=== PATIENT | female | born 1995 | race Caucasian/White ===

== ENCOUNTER 2018-04-28 04:02 | Inpatient (IN) | payer OTHER ==
[2018-04-28] MEDS ORDERED: CARBOPROST TROME 250 MCG/ML IM PRN (04:41)
[2018-04-28] MEDS ORDERED: Ringers Lactate 1,000 ML IV PRN (04:41)
[2018-04-28] MEDS ORDERED: PROMETHAZINE 25 MG/ML VIAL IM PRN (04:41)
[2018-04-28] MEDS ORDERED: MEPERIDINE HCL 25 MG/0.5 ML IV PRN (04:41)
[2018-04-28] MEDS ORDERED: METHYLERGONOVINE 0.2MG/ML AMP IM PRN (04:41)
[2018-04-28] MEDS ORDERED: BUTORPHANOL 1 MG/ML INJ IV PRN (04:41)
[2018-04-28 04:47] VITALS: BMI 31.3
[2018-04-28 04:53] LABS: RPR Titer ND
[2018-04-28 04:59] LABS: Urine Appearance CLOUDY; Urine Bilirubin NEGATIVE (NEG); Urine Blood 1+ (NEG); Urine Color YELLOW; Urine Glucose NEGATIVE (NEG); Urine Protein NEGATIVE (NEG); Urine pH 6.5 (5.0-7.0)
[2018-04-28] MEDS ORDERED: OXYTOCIN/LR 20 UNITS/1,000 ML BAG IV SCH (05:00)
[2018-04-28] MEDS ORDERED: Ringers Lactate 1,000 ML IV SCH (05:00)
[2018-04-28 05:01] LABS: Absolute Lymphocytes (CBC) 1.5 K/uL (0.7-4.9); Absolute Monocytes 0.6 K/uL (0.1-1.3); Absolute Neutrophil 3.8 K/uL (1.8-8.0); Basophils % 0.2 % (0-1.3); Eosinophils % 0.4 % (0-4.4); Hematocrit 31.7 % (36.0-45.0); Lymphocytes % 25.9 % (15.3-44.8); MCH 32.6 pg (27.0-35.0); MCV 95.4 fL (80-100); Monocytes % 9.4 % (3.3-12.3); RBC Red Blood Cell Count 3.32 M/uL (3.86-4.86)
[2018-04-28 05:41] LABS: Urine Microscopic Reflex ORDER UMIC
[2018-04-28 05:44] LABS: Urine Bacteria >50 /HPF (<20); Urine Culture Reflex Order REFLEXED; Urine RBC <5 /HPF (NONE SEEN)
[2018-04-28] MEDS ORDERED: LIDOCAINE 1% 20 ML MDV ONE (11:12)
[2018-04-28] MEDS ORDERED: DIPHENHYDRAMINE 25 MG TAB/CAP PO PRN (11:35)
[2018-04-28] MEDS ORDERED: DOCUSATE NA/SENNA CONC 1 TAB PO PRN (11:35)
[2018-04-28] MEDS ORDERED: Oxycodone HCl/Acetaminophen 1 TAB TAB PO PRN ×2 (11:35)
[2018-04-28] MEDS ORDERED: IBUPROFEN 200 MG TAB PO PRN (11:35)
[2018-04-28] MEDS ORDERED: ACETAMINOPHEN 500 MG TAB PO PRN (11:35)
[2018-04-28] MEDS ORDERED: BISACODYL 10 MG RECTAL SUPP RECT PRN (11:35)
--- NOTE | 2018-04-28 11:52 | OP ---
Surgeon: Melvin Pual MD Indications And Procedure: A 22-year-old, 2, para 1, 39 weeks 2 days, 2 cm on admission, 50% . Cervix slightly posterior. Kellie regularly. Rh positive, immune to Rubella. Negative beta strep screen. Rupture of membranes, clear fluid. During the labor, received Stadol IV 1 mg x2, oth erwise used Lamaze breathing techniques. Second stage of 15 to 20 minutes. Spontaneous vaginal deli very of a 6-pound 9 ounce male , Apgars 9 and 10. Small first degree laceration to the right a nd under the clitoris, a 2-0 chromic running locked stitch after local infiltration. Cao delivery of the placenta, which was inspected and noted to be intact and normal. A 300 cc blood loss. The p atient tolerated all procedures well. Final Diagnosis: Term intrauterine at 39 weeks 2 days, vaginal delivery. ROSALINDA/GINA Voice ID: [id number] Report ID: [id number]
[2018-04-28] MEDS ORDERED: OXYTOCIN/LR 20 UNIT/1,000 ML BAG IV SCH (12:00)
--- NOTE | 2018-04-28 13:28 | PREOPHP ---
Date of Admission: 04/28/2018 A 22-year-old, 2, para 1, at 39 weeks and 1 possibly 2 days, 2 cm, 50% effaced, vertex, well applied, -1 station. Cervix slightly posterior. Kellie regularly. FHTs normal, reactive. Vit al signs stable. Rh positive, immune to Rubella. Negative beta strep screen. Rupture of membranes, clear fluid. Labor talk given. The patient anticipates natural childbirth. Of course, she has the option to her mind if she chooses. Anticipate delivery sometime later today. Full labor talk given . ROSALINDA/GINA Voice ID: [id number]
[2018-04-29] MEDS ORDERED: Ringers Lactate 1,000 ML IV ONE (08:50)
[2018-04-29 11:14] VITALS: BP 116/69; TEMP 96.8
[2018-04-29 21:11] LABS: RPR (Rapid Plasma Reagin) NON-REACT (NON-REACT)
--- NOTE | 2018-04-30 01:09 | DS ---
Hospital Course: A 22-year-old, 2, para 1, 39 weeks 2 days. Delivered a 6 pounds 9 ounce ma le infant, Apgars 9 and 10. Small first-degree laceration just under the clitoris and to the patient 's right sutured with running lock stitch 2-0 chromic, approximately 5 or 6 stitches. Local infiltra tion of anesthetic. Cao delivery of the placenta. Estimated blood loss 300 cc. Beta strep negat bernabe. Rh positive, immune to Rubella. The patient has had her Tdap shot during the . She i s afebrile, ambulating, voiding. Lochia is normal. After the baby is discharged, patient will leave this afternoon to report back to my office in 6 weeks. To report any fever of 100 degrees or greate r, severe pain, heavy bleeding, or any other type of abnormalities. Dismissed with tramadol for anal gesia, although she may elect to take Motrin instead. Final Diagnoses: Term intrauterine 39 weeks 2 days, vaginal delivery. ROSALINDA/GINA Voice ID: [id number] Report ID: [id number]
[2018-05-01 19:53] LABS: HBsAG Nonreactive (Nonreactive)
== END 2018-04-29 13:45 | disposition home or self-care (01) | DRG 775 ==
LOC: 2ND-WC 04:02
PROVIDERS: ADMIT Specialist; ATTEND Specialist
PROC: 10907ZC Drainage of Amniotic Fluid, Therapeutic from Products of Conception, Via Natural or Artificial Opening (ICD-10-PCS; principal; 2018-04-28)
PROC: 10E0XZZ Delivery of Products of Conception, External Approach (ICD-10-PCS; 2018-04-28)
PROC: 0HQ9XZZ Repair Perineum Skin, External Approach (ICD-10-PCS; 2018-04-28)
DX: O70.0 First degree perineal laceration during delivery (principal); Z3A.39 39 weeks gestation of pregnancy; Z37.0 Single live birth
CPT/HCPCS: 36415; 81003; 81015; 85025; 86592; 86850; 86900; 86901; 87086; 87088; 87340; J0595; J2175; J2210; J2550; J2590

== ENCOUNTER 2019-09-28 01:07 | Inpatient (IN) | payer OTHER ==
[2019-09-28] MEDS ORDERED: BUTORPHANOL 1 MG/ML INJ IV PRN (01:12)
[2019-09-28] MEDS ORDERED: PROMETHAZINE 25 MG/ML VIAL IM PRN (01:12)
[2019-09-28] MEDS ORDERED: Ringers Lactate 1,000 ML IV PRN (01:12)
[2019-09-28] MEDS ORDERED: METHYLERGONOVINE 0.2MG/ML AMP IM PRN (01:12)
[2019-09-28] MEDS ORDERED: CARBOPROST TROME 250 MCG/ML IM PRN (01:12)
[2019-09-28] MEDS ORDERED: miSOPROStoL 100 MCG TAB VAG PRN (01:15)
[2019-09-28 01:38] LABS: Urine Appearance CLEAR; Urine Bilirubin NEGATIVE (NEG); Urine Blood NEGATIVE (NEG); Urine Color YELLOW; Urine Glucose NEGATIVE (NEG); Urine Protein NEGATIVE (NEG)
[2019-09-28] MEDS ORDERED: Ringers Lactate 1,000 ML IV SCH (02:00)
[2019-09-28] MEDS ORDERED: OXYTOCIN/LR 20 UNIT/1,000 ML BAG IV SCH ×2 (02:00→06:00)
[2019-09-28 02:26] LABS: Urine Microscopic Reflex NO UMIC
[2019-09-28 02:32] LABS: Absolute Lymphocytes (CBC) 1.3 K/uL (0.7-4.9); Basophils % 0.2 % (0-1.3); Hematocrit 31.9 % (36.0-45.0); Lymphocytes % 23.2 % (15.3-44.8); MPV 8.7 fL (7.6-11.3); RBC Red Blood Cell Count 3.32 M/uL (3.86-4.86)
--- NOTE | 2019-09-28 03:51 | PREOPHP ---
Date of Admission: 09/28/2019 A 23-year-old 3, para 2, 38 weeks 2 days, seen in consultation with Dr. Larsen in [facility] [place], [place], high-risk physician. The patient has a history of chronic thrombophlebitis and th romboembolism. Has been on Lovenox b.i.d. during the . Twenty four hours ago, she took her last dose. Dr. Larsen has recommended delivery at this point as the baby is not growing as well as it should and umbilical artery flow is slowing. She is now 3 cm, 50% effaced, somewhat posterior, ba by well applied, richard every 10 minutes or so, but firm. Rupture of membranes, clear fluid. W e will start Pitocin augmentation as soon as possible. The plan is to deliver the patient and then s tart Lovenox again within 18-24 hours after the delivery. The patient will go natural as she has wit h her other 2 deliveries. Obviously, epidural anesthesia would not be a good idea. ROSALINDA/GINA Voice ID: [id number]
[2019-09-28] MEDS ORDERED: Ringers Lactate 1,000 ML IV ONE (04:08)
[2019-09-28] MEDS ORDERED: OXYTOCIN 10 UNIT/ML ML IV ONE (04:08)
[2019-09-28 04:38] VITALS: BMI 29.7
[2019-09-28] MEDS ORDERED: DOCUSATE NA/SENNA CONC 1 TAB PO PRN (05:43)
[2019-09-28] MEDS ORDERED: Oxycodone HCl/Acetaminophen 1 TAB TAB PO PRN ×2 (05:43)
[2019-09-28] MEDS ORDERED: BISACODYL 10 MG RECTAL SUPP RECT PRN (05:43)
[2019-09-28] MEDS ORDERED: IBUPROFEN 200 MG TAB PO PRN (05:43)
[2019-09-28] MEDS ORDERED: DIPHENHYDRAMINE 25 MG TAB/CAP PO PRN (05:43)
[2019-09-28] MEDS ORDERED: ACETAMINOPHEN 500 MG TAB PO PRN (05:43)
--- NOTE | 2019-09-28 07:15 | OP ---
Surgeon: Melvin Paul MD A 23-year-old, 3, para 2, 38 weeks 2 days. History of chronic thrombophlebitis and thromboem bolism in the past. Has been on Lovenox b.i.d. during the entire and seen in consultation with Dr. Jules at [facility] in [place]. Yesterday Dr. Jules suggested patient be delivered as soon as possible as the fetus was no longer growing and the umbilical artery flow was sl owing. 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 The patient was already 3 cm, clear fluid. She went into an active labor pattern. Used La maze breathing techniques to best advantage. After reaching 6-7 cm, went rapidly to complete second stage of 5 minutes approximately, spontaneous vaginal delivery of an estimated 6 pounds female, s 9 and 9. No episiotomy. No lacerations. Schultze delivery of the placenta, which was inspected a nd noted to be intact and normal. Mild uterine hypotonus, 0.2 mg of Methergine and IV drip Pitocin. Estimated blood loss 400 mL. Patient tolerated all procedures well. She is Rh positive, immune to Rubella. Negative beta strep screen. She had stopped her Lovenox 24 hours or more prior to delivery as per the instructions and will begin again back on her Lovenox within 24 hours of delivery. Doing well at this point. ROSALINDA/GINA Voice ID: [id number] Report ID: [id number]
[2019-09-28] MEDS ORDERED: INFLUENZA VACCINE (for 3y+) 0.5 ML DOSE IMVAC ONE (08:00)
[2019-09-28 21:54] LABS: RPR (Rapid Plasma Reagin) NON-REACT (NON-REACT)
--- NOTE | 2019-09-29 03:04 | DS ---
History: A 23-year-old 3, para 2, 38 weeks 2 days gestation, seen in consultation with Dr. Anni robert, [facility] during the for history of chronic thrombophlebitis and previous thromboembolism. Has been on Lovenox twice a day during the . After being seen in the office for consultation, Dr. Larsen recommended immediate delivery. The baby was not growing ad equately and the umbilical blood flow was decreasing, she was 3 cm when she came into the hospital, h as stopped her Lovenox approximately 24 hours prior to admission. Membranes were ruptured and patien t went to an active labor pattern without Pitocin. Delivered quickly a 5-pound 4-ounce female. Apga rs 9 and 9. No episiotomy. No laceration. Schultze delivery of the placenta was inspected and note d be intact and normal. Mild uterine hypotonus, 0.2 mg of Methergine IM, IV drip Pitocin. Estimated blood loss 400 mL. Rh positive, immune to Rubella. Negative beta strep screen. ; afebri le, ambulating and voiding. Lochia is normal. The patient knows to restart her Lovenox 18-24 hours. After the delivery she has her own medication, is highly reliable, and will do so. The patient moises l stay until tomorrow when she will be assessed and if any problems, Dr. Hollingsworth is on-call. Right now, she is doing quite well. Does not require any analgesics on dismissal. She will call my offic e today and make an appointment for routine followup. Final Diagnoses: Intrauterine gestation 38 weeks 2 days. History of chronic thrombophlebitis and pr evious thromboembolism, on Lovenox during the , Lovenox stopped 24 hours prior to delivery, will be started 24 hours after delivery. Mild uterine hypotonus. NBC/MODL Voice ID: [id number] Report ID: [id number]
[2019-09-29 07:17] LABS: Absolute Lymphocytes (CBC) 1.5 K/uL (0.7-4.9); Basophils % 0.2 % (0-1.3); Lymphocytes % 24.5 % (15.3-44.8); MPV 7.8 fL (7.6-11.3); RBC Red Blood Cell Count 2.68 M/uL (3.86-4.86)
[2019-09-29] MEDS ORDERED: Tdap (Diph,Pertuss(Acell),Tet Vac) 0.5 ML SYR IMVAC ONE (07:34)
[2019-09-29 07:39] VITALS: BP 109/64; TEMP 98
[2019-09-29] MEDS ORDERED: INFLUENZA VACCINE (for 3y+) 0.5 ML DOSE IMVAC ONE (08:00)
[2019-09-29] MEDS ORDERED: PRENATAL VITAMIN PO SCH (09:00)
--- OUTSIDE RECORDS SUMMARY | 2019-10-02 02:28 | XMS REPORT ---
:1995 [facility] [address] [place] [address] Care Team Providers Name Role Phone BRYCE ALICIA Unavailable Unavailable Problems This patient has no known problems. Allergies, Adverse Reactions, Alerts This patient has no known allergies or adverse reactions. Medications This patient has no known medications. Results Test Description Test Time Test Comments Text Results Atomic Results Result Comments BASIC METABOLIC PANEL 2018-08-18 14:57:00 Test Item Value Reference Range Comments SODIUM (BEAKER) (test 139 meq/L 136-145 vyab=041) POTASSIUM (BEAKER) (test 3.3 meq/L 3.5-5.1 ayku=065) CHLORIDE (BEAKER) (test 107 meq/L 98-107 wpjg=653) CO2 (BEAKER) (test utbk=214) 26 meq/L 22-29 BLOOD UREA NITROGEN (BEAKER) 9 mg/dL 7-21 (test vdkp=368) CREATININE (BEAKER) (test 0.80 mg/dL 0.57-1.25 dmft=652) GLUCOSE RANDOM (BEAKER) 94 mg/dL 70-105 (test jewo=404) CALCIUM (BEAKER) (test 8.8 mg/dL 8.4-10.2 gebg=175) EGFR (BEAKER) (test 89 mL/min/1.73 sq m ESTIMATED GFR IS NOT kcfa=0733) ACCURATE CREATININE CLEARANCE IN PREDICTING GLOMERULAR FILTRATION RATE. ESTIMATED GFR IS NOT APPLICABLE FOR DIALYSIS PATIENTS. [id number] 14:51:00 Test Item Value Reference Range Comments PARTIAL THROMBOPLASTIN TIME (BEAKER) (test 28.1 seconds 22.5-36.0 paag=032) LUPUS ANTICOAGULANT SCREEN WITH REFLEX TO [id number] 13:07:00 Test Item Value Reference Range Comments DRVV SCREEN RATIO (BEAKER) (test 0.97 <1.20 ovoj=8151) DRVV INTERPRETATION (BEAKER) 1:1 mix resulted in (test drmq=9425) correction into normal range and lupus screening tests negative, suggestive of factor deficiency. PROTIME (BEAKER) (test tccw=294) 13.3 seconds 11.7-14.7 INR (BEAKER) (test lkoa=788) 1.2 <=5.9 PARTIAL THROMBOPLASTIN TIME 36.9 seconds 22.5-36.0 (BEAKER) (test avrg=369) PTT-LA (BEAKER) (test 46.9 32.0-41.8 enff=[id number]) [id number] (BEAKER) Trudi Osman MD (test zxni=2933) (electronic signature) FACTOR 5 LEIDEN PCR (THROMBOTIC RISK)2018-08-18 12:58:00 Test Item Value Reference Range Comments FACTOR V LEIDEN (BEAKER) Negative for the R506Q (Factor (test nsua=229) V Leiden) mutation [id number] (BEAKER) Trudi Osman MD (test agok=9425) (electronic signature) This test is a genotyping assay which evaluates the DNA sequence corresponding to Codon 506 of the Factor V Gene. A region of the Factor V Gene is amplified by polymerase chain reaction followed by fluorescent monitoring of a specific pair of hybridized probes. Since genetic variation and other factors can affect the accuracy of direct mutation testing, these results should be interpreted in light ofclinical and familial data.This test was developed and [facility] performance [facility]. It has not been cleared or approved by the U.S. Food and Drug Administration (FDA), since FDA approval is not required for clinical use of the test. Validation was done as required by the Clinical Laboratory Improvement Amendments of 1988.[id number] 12:54:00 Test Item Value Reference Range Comments PARTIAL THROMBOPLASTIN TIME (BEAKER) (test 56.1 seconds 22.5-36.0 luqz=554) BASIC METABOLIC [id number] 12:51:00 Test Item Value Reference Range Comments SODIUM (BEAKER) (test 141 meq/L 136-145 mkhz=072) POTASSIUM (BEAKER) (test 2.9 meq/L 3.5-5.1 wdzk=208) CHLORIDE (BEAKER) (test 107 meq/L 98-107 psqz=253) CO2 (BEAKER) (test 28 meq/L 22-29 lozy=546) BLOOD UREA NITROGEN 9 mg/dL 7-21 (BEAKER) (test aqwo=043) CREATININE (BEAKER) (test 0.85 mg/dL 0.57-1.25 vxrb=045) GLUCOSE RANDOM (BEAKER) 106 mg/dL 70-105 (test vjhj=422) CALCIUM (BEAKER) (test 8.9 mg/dL 8.4-10.2 couk=473) EGFR (BEAKER) (test 83 mL/min/1.73 sq m ESTIMATED GFR IS NOT ilql=7060) ACCURATE CREATININE CLEARANCE IN PREDICTING GLOMERULAR FILTRATION RATE. ESTIMATED GFR IS NOT APPLICABLE FOR DIALYSIS PATIENTS. BETA-2 GLYCOPROTEIN [id number] 10:10:00 Test Item Value Reference Range Comments B2 GLYCOPROTEIN AUTOVERIFICATION Refer to individual COMPONENT (test tsti=3739) B2-Glycoprotein IgG, IgM and IgA results. [id number] 02:03:00 Test Item Value Reference Range Comments PARTIAL THROMBOPLASTIN TIME (BEAKER) (test 65.2 seconds 22.5-36.0 lzti=948) CBC (HEMOGRAM ONLY)2018-08-18 00:40:00 Test Item Value Reference Range Comments WHITE BLOOD CELL COUNT (BEAKER) (test wsdr=746) 8.2 K/ L 3.5-10.5 RED BLOOD CELL COUNT (BEAKER) (test tfeg=907) 3.12 M/ L 3.93-5.22 HEMOGLOBIN (BEAKER) (test bfzq=087) 9.5 GM/DL 11.2-15.7 HEMATOCRIT (BEAKER) (test djni=662) 27.8 % 34.1-44.9 MEAN CORPUSCULAR VOLUME (BEAKER) (test wvio=933) 89.1 fL 79.4-94.8 MEAN CORPUSCULAR HEMOGLOBIN (BEAKER) (test 30.4 pg 25.6-32.2 rdpe=209) MEAN CORPUSCULAR HEMOGLOBIN CONC (BEAKER) (test 34.2 GM/DL 32.2-35.5 ltay=577) RED CELL DISTRIBUTION WIDTH (BEAKER) (test 13.5 % 11.7-14.4 zfxt=968) PLATELET COUNT (BEAKER) (test eawf=126) 109 K/CU MM 150-450 MEAN PLATELET VOLUME (BEAKER) (test wqgc=683) 10.5 fL 9.4-12.3 NUCLEATED RED BLOOD CELLS (BEAKER) (test 0 /100 WBC 0-0 xeog=564) SCREEN, [id number] 16:01:00 Test Item Value Reference Range Comments TEST URINE (BEAKER) (test sgsb=751) Negative HEXAGONAL [id number] 13:46:00 Test Item Value Reference Range Comments HEXAGONAL PHOSPHOLIPID (BEAKER) (test enco=6429) Negative BASIC METABOLIC [id number] 09:36:00 Test Item Value Reference Range Comments SODIUM (BEAKER) (test 142 meq/L 136-145 awsc=918) POTASSIUM (BEAKER) (test 3.3 meq/L 3.5-5.1 vofn=427) CHLORIDE (BEAKER) (test 112 meq/L 98-107 dkzt=379) CO2 (BEAKER) (test 23 meq/L 22-29 pvej=519) BLOOD UREA NITROGEN 5 mg/dL 7-21 (BEAKER) (test hlwo=148) CREATININE (BEAKER) (test 0.68 mg/dL 0.57-1.25 buvp=480) GLUCOSE RANDOM (BEAKER) 86 mg/dL 70-105 (test ojss=494) CALCIUM (BEAKER) (test 8.8 mg/dL 8.4-10.2 keiq=174) EGFR (BEAKER) (test 107 mL/min/1.73 sq m ESTIMATED GFR IS NOT hwef=2510) ACCURATE CREATININE CLEARANCE IN PREDICTING GLOMERULAR FILTRATION RATE. ESTIMATED GFR IS NOT APPLICABLE FOR DIALYSIS PATIENTS. [id number] 09:07:00 Test Item Value Reference Range Comments PARTIAL THROMBOPLASTIN TIME (BEAKER) (test 64.2 seconds 22.5-36.0 svml=472) CBC W/PLT COUNT & AUTO [id number] 08:54:00 Test Item Value Reference Range Comments WHITE BLOOD CELL COUNT (BEAKER) (test fkqa=623) 5.7 K/ L 3.5-10.5 RED BLOOD CELL COUNT (BEAKER) (test wbck=414) 3.00 M/ L 3.93-5.22 HEMOGLOBIN (BEAKER) (test xinq=764) 8.9 GM/DL 11.2-15.7 HEMATOCRIT (BEAKER) (test mqrc=925) 27.6 % 34.1-44.9 MEAN CORPUSCULAR VOLUME (BEAKER) (test vosu=851) 92.0 fL 79.4-94.8 MEAN CORPUSCULAR HEMOGLOBIN (BEAKER) (test 29.7 pg 25.6-32.2 nrgt=195) MEAN CORPUSCULAR HEMOGLOBIN CONC (BEAKER) (test 32.2 GM/DL 32.2-35.5 fsuz=463) RED CELL DISTRIBUTION WIDTH (BEAKER) (test 13.6 % 11.7-14.4 bvrz=499) PLATELET COUNT (BEAKER) (test gkmj=656) 82 K/CU MM 150-450 MEAN PLATELET VOLUME (BEAKER) (test gajb=978) 10.9 fL 9.4-12.3 NUCLEATED RED BLOOD CELLS (BEAKER) (test 0 /100 WBC 0-0 hetx=858) NEUTROPHILS RELATIVE PERCENT (BEAKER) (test 57 % cucx=756) LYMPHOCYTES RELATIVE PERCENT (BEAKER) (test 34 % tfkz=709) MONOCYTES RELATIVE PERCENT (BEAKER) (test 8 % pwqf=281) EOSINOPHILS RELATIVE PERCENT (BEAKER) (test 0 % rlgn=101) BASOPHILS RELATIVE PERCENT (BEAKER) (test 0 % loec=328) NEUTROPHILS ABSOLUTE COUNT (BEAKER) (test 3.29 K/ L 1.56-6.13 vryk=720) LYMPHOCYTES ABSOLUTE COUNT (BEAKER) (test 1.93 K/ L 1.18-3.74 zkqw=832) MONOCYTES ABSOLUTE COUNT (BEAKER) (test hrbj=329) 0.45 K/ L 0.24-0.36 EOSINOPHILS ABSOLUTE COUNT (BEAKER) (test 0.02 K/ L 0.04-0.36 jdpc=116) BASOPHILS ABSOLUTE COUNT (BEAKER) (test hrfp=834) 0.01 K/ L 0.01-0.08 IMMATURE GRANULOCYTES-RELATIVE PERCENT (BEAKER) 1 % 0-1 (test lusj=4068) VITAMIN B12 AND [id number] 06:57:00 Test Item Value Reference Range Comments VITAMIN B12 (BEAKER) (test lqoy=350) 188 pg/mL 213-816 FOLATE (BEAKER) (test ephr=312) 9.0 ng/mL >=7.0 PERIPHERAL BLOOD SMEAR - HOLD [id number] 06:09:00 Test Item Value Reference Range Comments PERIPHERAL SMEAR SAVE (BEAKER) (test wghy=6971) Yes BASIC METABOLIC [id number] 05:28:00 Test Item Value Reference Range Comments SODIUM (BEAKER) (test 139 meq/L 136-145 msqq=217) POTASSIUM (BEAKER) (test 3.5 meq/L 3.5-5.1 lqei=571) CHLORIDE (BEAKER) (test 110 meq/L 98-107 kcuk=455) CO2 (BEAKER) (test 21 meq/L 22-29 tgcs=035) BLOOD UREA NITROGEN 8 mg/dL 7-21 (BEAKER) (test aelh=150) CREATININE (BEAKER) (test 0.68 mg/dL 0.57-1.25 eeps=365) GLUCOSE RANDOM (BEAKER) 98 mg/dL 70-105 (test gizt=726) CALCIUM (BEAKER) (test 9.0 mg/dL 8.4-10.2 fest=106) EGFR (BEAKER) (test 107 mL/min/1.73 sq m ESTIMATED GFR IS NOT ovsz=7521) ACCURATE CREATININE CLEARANCE IN PREDICTING GLOMERULAR FILTRATION RATE. ESTIMATED GFR IS NOT APPLICABLE FOR DIALYSIS PATIENTS. [id number] 05:13:00 Test Item Value Reference Range Comments PARTIAL THROMBOPLASTIN TIME (BEAKER) (test 100.4 seconds 22.5-36.0 btls=714) CBC W/PLT COUNT & AUTO [id number] 05:10:00 Test Item Value Reference Range Comments WHITE BLOOD CELL COUNT (BEAKER) (test lcoi=136) 5.0 K/ L 3.5-10.5 RED BLOOD CELL COUNT (BEAKER) (test ugzu=332) 3.17 M/ L 3.93-5.22 HEMOGLOBIN (BEAKER) (test pryn=184) 9.3 GM/DL 11.2-15.7 HEMATOCRIT (BEAKER) (test ywsf=899) 29.1 % 34.1-44.9 MEAN CORPUSCULAR VOLUME (BEAKER) (test ffcj=983) 91.8 fL 79.4-94.8 MEAN CORPUSCULAR HEMOGLOBIN (BEAKER) (test 29.3 pg 25.6-32.2 ulbf=564) MEAN CORPUSCULAR HEMOGLOBIN CONC (BEAKER) (test 32.0 GM/DL 32.2-35.5 hqqd=338) RED CELL DISTRIBUTION WIDTH (BEAKER) (test 13.5 % 11.7-14.4 gwjm=024) PLATELET COUNT (BEAKER) (test fxjx=647) 77 K/CU MM 150-450 MEAN PLATELET VOLUME (BEAKER) (test gtlu=797) 11.2 fL 9.4-12.3 NUCLEATED RED BLOOD CELLS (BEAKER) (test 0 /100 WBC 0-0 gsat=278) NEUTROPHILS RELATIVE PERCENT (BEAKER) (test 66 % eyam=441) LYMPHOCYTES RELATIVE PERCENT (BEAKER) (test 24 % ghjg=689) MONOCYTES RELATIVE PERCENT (BEAKER) (test 9 % zklz=700) EOSINOPHILS RELATIVE PERCENT (BEAKER) (test 0 % xghm=130) BASOPHILS RELATIVE PERCENT (BEAKER) (test 0 % mfmy=920) NEUTROPHILS ABSOLUTE COUNT (BEAKER) (test 3.29 K/ L 1.56-6.13 wmmf=004) LYMPHOCYTES ABSOLUTE COUNT (BEAKER) (test 1.21 K/ L 1.18-3.74 hfuk=346) MONOCYTES ABSOLUTE COUNT (BEAKER) (test eock=778) 0.45 K/ L 0.24-0.36 EOSINOPHILS ABSOLUTE COUNT (BEAKER) (test 0.01 K/ L 0.04-0.36 kzdr=128) BASOPHILS ABSOLUTE COUNT (BEAKER) (test rbxb=550) 0.01 K/ L 0.01-0.08 IMMATURE GRANULOCYTES-RELATIVE PERCENT (BEAKER) 0 % 0-1 (test nxpd=9328) CT, CTA [id number] 17:40:00(delayed CTA for venous phase imagingAddendum BeginsREPORT STATUS:A Addendum: August 15, 2018 at 1745 hours I have reviewed the CT images for this study and I concur with the nonvascular imaging findings as dictated. Signed: [place] MDReport Verified Date/Time: 08/15/2018 17:40:51 Reading Location: [facility] [id number] Angio Body Reading RoomAddendum EndsFINAL REPORT CT venography of the abdomen and pelvis, 15 August 2018 INDICATION: This is a 22 year old female, per EPIC, has known DVT, presents for assessment. This study is performed in an attempt to avoid an invasive procedure. TECHNIQUE: Spiral acquisition during intravenous contrast administration using a Dave CT scanner. Images were obtained before and during the dynamic passage of intravenous contrast material. Multi-planar 3-D volume-rendering reconstruction was performed using an independent workstation interactively by the interpreting physician as well as the 3-D specialist for optimal visualisation of the abdominalaorta, pelvic arteries, and its proximal branches. Please refer to the contrast sheet scanned in theEPIC system for the amount and route of contrast given. This exam was performed according to our departmental dose-optimisation programme, which includes automated exposure control, adjustment of the mA and/or kV according to patient size and/or use of iterative reconstruction technique. Dose modulation, iterative reconstruction, and/or weight based adjustment of the mA/kV was utilized to reduce the radiation dose to as low as reasonably achievable. The imaging physician will decide whether precontrast images will, contribute to the diagnosis. FINDINGS: VASCULAR: The abdominal aorta is normal in course, calibre and contour. No ectasia or aneurysmal dilation is seen. No atherosclerosis is identified. There is no evidence of acute aortic pathology, specifically, there is no dissection, intramuralhematoma, or contained rupture. Quantitative dimensions of the abdominal aorta are as follows: 1.8 cm at the mesenteric segment; 1.5 cm at the renal segment,; and 1.3 cm at the aortic bifurcation.The pelvic arteries are patent with no arterial stenosis identified bilaterally. No atherosclerosis is seen. The celiac axis, SMA, RICO are patent. Single left and right renal arteries are seen that arepatent. Majority of the IVC is unremarkable. However, by multiplanar reformation, the proximal 3 cm of the IVC has near occlusive thrombus identified. See arrows in snapshots for details. This can be seen at image [id number]. The left common iliac, left external iliac, and the left femoral veins, where visualised are patent with no venous thrombus identified. However, absence of enhancement is identified in the right common iliac, right external iliac and much of the right femoral vein that accompaniesthe right common femoral artery, indicate the presence of venous thrombus, with substantial thrombusburden. There could be minimal inflammatory changes identified surrounding the proximal femoral vein, for example image 269. At the time of examination, no significant venous collaterals is appreciated. The portal vein, splenic vein, SMV are patent with no venous thrombus identified. The left and right renal veins are unremarkable with no venous thrombosis identified. NON-VASCULAR: LUNG BASES: See chest CT result. The visualised liver and spleen appears unremarkable. The liver edge is smooth. No abnormal enhancing structure is identified. No acute renal pathology is seen and no hydronephrosis or perirenal fluid collections identified. The adrenal glands are not enlarged. The gallbladder and the pancreas appears unremarkable. No acute renal pathology is seen and no hydronephrosis or perirenal fluid collections identified. Bowel is not well assessed by CT angiography as enteric contrast is not given. No obvious bowel dilation is identified. The appendix appears unremarkable. The bladder appears unremarkable. The uterus is identified. No obvious abnormal adnexal masses seen. CT is not optimised in the assessment of pelvic gynaecological structures. No acute bony pathology is seen. CONCLUSIONS: 1. The abdominal aorta is normal in course, calibre and contour. There is no evidence of acute aortic pathology, specifically, there is no dissection, intramural hematoma, or contained rupture. Quantitative dimension of the abdominal aorta are as noted. The pelvic arteries unremarkable. 2. Majority of the IVC is unremarkable, except for the proximal 3 cm at that is filled by thrombus. Left pelvic veins are unremarkable, widely patent.Enhancement is identified in the left pelvic venous system. The right common iliac, right external iliac and majority of the right femoral veins are not enhancedby contrast indicating presence of venous thrombus, with substantial thrombus burden (suggesting near occlusive thrombus present). Suboptimal enhancement is also identified in the right internal iliac venous system, suggesting the presence of venous thrombus. See snapshots and 3-D images for details. 3. Other findings as described above 4. An addendum will be dictated regarding the non-vascular findings by the Rn Float Radiologist. Signed: Pérez Meyers MDReport Verified Date/Time: 08/15/2018 12:35:56 Reading Location: [place] [address] Cardiology MRI PROTEIN C [id number] 15:09:00 Test Item Value Reference Range Comments PROTEIN C ACTIVITY (BEAKER) (test qxzs=190) 108.0 % 70.0-130.0 [id number] 15:02:00 Test Item Value Reference Range Comments HOMOCYSTEINE (BEAKER) (test sibn=062) 4.4 umol/L 5.1-15.4 CT, CHEST WITH IV CONTRAST- PE TEST [id number] 15:01:00FINAL REPORT TECHNIQUE: CT scan of the chest WITH intravenous contrast. Dose modulation, iterative reconstruction, and/or weight-based adjustment of the mA/kV was utilized to reduce the radiation dose to as low as reasonably achievable. INDICATION: 22-year-old woman with deep vein thrombus. COMPARISON: None. FINDINGS: LINES/TUBES: None. PULMONARY ARTERIES: Proximal to the bifurcation of the main pulmonary artery, the main pulmonary artery is 2.7 cm in diameter. Filling defects in lower lobe segmental branches of the right and left pulmonary arteries. LUNGS AND AIRWAYS: 4 mm nodule along the right minor fissure, likely intrafissural lymph node (axial lung window series image 30). The lungs and airways are otherwise normal without focal abnormality. PLEURA: The pleural spaces are clear. HEART AND MEDIASTINUM: The visualized thyroid gland is normal. No significant mediastinal or hilar lymphadenopathy. The heart and pericardium are within normal limits. SOFT TISSUES AND BONES: Scattered bilateral subpectoral/axillary lymph nodes measure up to 1 cm. UPPER ABDOMEN: Unremarkable. IMPRESSION:Emboli in lower lobe segmental branches of both pulmonary arteries. Mildly prominent bilateral subpectoral/axillary lymph nodes, nonspecific and likely reactive. Signed: Meliza Emanueleport Verified Date/Time: 08/15/2018 15:01:15 Reading Location: [address] Body Reading Room LACTATE DEHYDROGENASE (LDH)2018-08-15 14 :50:00 Test Item Value Reference Range Comments LACTATE DEHYDROGENASE (BEAKER) 217 U/L 125-220 Specimen slightly hemolyzed (test qalk=079) HEPATIC FUNCTION [id number] 14:46:00 Test Item Value Reference Range Comments TOTAL PROTEIN (BEAKER) (test 7.1 gm/dL 6.0-8.3 Specimen slightly hemolyzed dopo=817) ALBUMIN (BEAKER) (test 3.6 g/dL 3.5-5.0 Specimen slightly hemolyzed bdja=7593) BILIRUBIN TOTAL (BEAKER) (test 0.4 mg/dL 0.2-1.2 Specimen slightly hemolyzed tyfl=042) BILIRUBIN DIRECT (BEAKER) (test 0.2 mg/dL 0.1-0.5 Specimen slightly hemolyzed kkvf=356) ALKALINE PHOSPHATASE (BEAKER) 90 U/L 40-150 (test ntvk=638) AST (SGOT) (BEAKER) (test 22 U/L 5-34 Specimen slightly hemolyzed winb=228) ALT (SGPT) (BEAKER) (test 18 U/L 6-55 Specimen slightly hemolyzed hqoo=947) [id number] 14:42:00 Test Item Value Reference Range Comments HAPTOGLOBIN (BEAKER) (test xwyk=399) 194 mg/dL 14-258 [id number] 14:42:00 Test Item Value Reference Range Comments PARTIAL THROMBOPLASTIN TIME (BEAKER) (test 76.2 seconds 22.5-36.0 fybo=421) RETICULOCYTE [id number] 14:25:00 Test Item Value Reference Range Comments RETICULOCYTE COUNT PCT (BEAKER) (test mjxk=117) 1.1 % 0.5-1.7 1:1 MIXING STUDY, [id number] 14:20:00 Test Item Value Reference Range Comments PROTIME (BEAKER) (test mfim=466) 13.3 seconds 11.7-14.7 PARTIAL THROMBOPLASTIN TIME (BEAKER) (test 36.9 seconds 22.5-36.0 njpd=064) PT 1/1 MIX (BEAKER) (test bbvj=7055) 13.3 SECS 11.7-14.7 PTT 1/1 MIX (BEAKER) (test esrj=6238) 32.7 SECS 22.5-36.0 HEPARIN [id number] 14:10:00 Test Item Value Reference Range Comments HEPARIN ANTIBODY (BEAKER) (test ltbs=958) Negative Negative HEPARIN ANTIBODY OD (BEAKER) (test hctz=1769) 0.132 <0.400 4T TOTAL SCORE (BEAKER) (test twad=1724) 6 Probability of HIT based on scoring system: 6-8=High probability; 4-5= intermediate probability; 0-3=low probabilityPERIPHERAL BLOOD SMEAR - PATHOLOGIST [id number] 13:56:00 Test Item Value Reference Range Comments PERIPHERAL SMR REVIEW (BEAKER) Cell counts confirmed. (test xfnv=1617) [id number] (BEAKER) Carolynn Lester M.D. (test rbfq=1403) (electronic signature) CARDIOLIPIN ANTIBODIES, IGG AND [id number] 11:46:00 Test Item Value Reference Range Comments ANTICARDIOLIPIN IGG ANTIBODY (BEAKER) (test < GPL <20.0 vuig=133) ANTICARDIOLIPIN IGM ANTIBODY (BEAKER) (test 3.8 MPL <20.0 wetx=249) Anticardiolipin IgG Result Interpretation: <20.0 GPL Normal>/=20.0 GPL PositiveAnticardiolipin IgM Result Interpretation: <20.0 MPL Normal>/= 20.0 MPL PositiveCBC W/PLT COUNT & AUTO [id number] 07:48:00 Test Item Value Reference Range Comments WHITE BLOOD CELL COUNT (BEAKER) (test oyzs=998) 2.8 K/ L 3.5-10.5 RED BLOOD CELL COUNT (BEAKER) (test jteb=194) 3.38 M/ L 3.93-5.22 HEMOGLOBIN (BEAKER) (test wcnk=964) 10.0 GM/DL 11.2-15.7 HEMATOCRIT (BEAKER) (test mlpx=469) 30.9 % 34.1-44.9 MEAN CORPUSCULAR VOLUME (BEAKER) (test bmwo=120) 91.4 fL 79.4-94.8 MEAN CORPUSCULAR HEMOGLOBIN (BEAKER) (test 29.6 pg 25.6-32.2 ruqq=564) MEAN CORPUSCULAR HEMOGLOBIN CONC (BEAKER) (test 32.4 GM/DL 32.2-35.5 ceup=096) RED CELL DISTRIBUTION WIDTH (BEAKER) (test 13.8 % 11.7-14.4 gzbk=183) PLATELET COUNT (BEAKER) (test uszx=318) 48 K/CU MM 150-450 MEAN PLATELET VOLUME (BEAKER) (test mrlm=800) 12.0 fL 9.4-12.3 NUCLEATED RED BLOOD CELLS (BEAKER) (test 0 /100 WBC 0-0 wcif=044) (CELLAVISION MANUAL DIFF)2018-08-15 07:48:00 Test Item Value Reference Range Comments NEUTROPHILS - REL (CELLAVISION)(BEAKER) (test 44 % bvbl=8055) LYMPHOCYTES - REL (CELLAVISION)(BEAKER) (test 46 % yqny=0890) MONOCYTES - REL (CELLAVISION)(BEAKER) (test 1 % kriq=5232) EOSINOPHILS - REL (CELLAVISION)(BEAKER) (test 7 % ctgp=2326) BASOPHILS - REL (CELLAVISION)(BEAKER) (test 1 % rgni=0411) ATYPICAL LYMPHOCYTES - REL (CELLAVISION)(BEAKER) 1 % 0-0 (test xjft=9534) NEUTROPHILS - ABS (CELLAVISION)(BEAKER) (test 1.23 K/ul 1.56-6.13 sfax=9014) LYMPHOCYTES - ABS (CELLAVISION)(BEAKER) (test 1.29 K/ul 1.18-3.74 hzaa=5917) MONOCYTES - ABS (CELLAVISION)(BEAKER) (test 0.03 K/uL 0.24-0.36 aftp=1343) EOSINOPHILS - ABS (CELLAVISION)(BEAKER) (test 0.20 K/uL 0.04-0.36 bptq=8775) BASOPHILS - ABS (CELLAVISION)(BEAKER) (test 0.03 K/uL 0.01-0.08 fuxl=0571) ATYPICAL LYMPHOCYTES - ABS (CELLAVISION)(BEAKER) 0.03 K/uL 0.00-0.00 (test mjxi=7542) TOTAL COUNTED (BEAKER) (test fezp=6005) 100 MANUAL NRBC PER 100 CELLS (BEAKER) (test 1 /100 WBC 0-0 huix=0493) RBC MORPHOLOGY (BEAKER) (test lpix=176) Normal SMUDGE CELLS (BEAKER) (test tvml=2942) Present GIANT PLATELETS (BEAKER) (test agtu=768) Present ARTIFACT (CELLAVISION)(BEAKER) (test jxdl=8883) Present PLATELET CONCENTRATION (CELLAVISION)(BEAKER) Decreased (test igex=9655) Received comment: User comments: Slide comments:BASIC METABOLIC [id number] 04:46:00 Test Item Value Reference Range Comments SODIUM (BEAKER) (test 140 meq/L 136-145 rive=372) POTASSIUM (BEAKER) (test 3.7 meq/L 3.5-5.1 ilxm=275) CHLORIDE (BEAKER) (test 110 meq/L 98-107 hgrr=306) CO2 (BEAKER) (test 23 meq/L 22-29 zyis=893) BLOOD UREA NITROGEN 8 mg/dL 7-21 (BEAKER) (test fino=208) CREATININE (BEAKER) (test 0.70 mg/dL 0.57-1.25 whpt=388) GLUCOSE RANDOM (BEAKER) 88 mg/dL 70-105 (test eygr=882) CALCIUM (BEAKER) (test 8.8 mg/dL 8.4-10.2 gbvp=876) EGFR (BEAKER) (test 104 mL/min/1.73 sq m ESTIMATED GFR IS NOT gxrq=8711) ACCURATE CREATININE CLEARANCE IN PREDICTING GLOMERULAR FILTRATION RATE. ESTIMATED GFR IS NOT APPLICABLE FOR DIALYSIS PATIENTS. [id number] 04:45:00 Test Item Value Reference Range Comments PARTIAL THROMBOPLASTIN TIME (BEAKER) (test 86.9 seconds 22.5-36.0 dake=047) [id number] 21:11:00 Test Item Value Reference Range Comments PARTIAL THROMBOPLASTIN TIME (BEAKER) (test 103.9 seconds 22.5-36.0 eqzy=425) VITAMIN B12 AND [id number] 15:11:00 Test Item Value Reference Range Comments VITAMIN B12 (BEAKER) (test uvfw=882) 232 pg/mL 213-816 FOLATE (BEAKER) (test uqbc=342) 11.8 ng/mL >=7.0 [id number] 14:17:00 Test Item Value Reference Range Comments FERRITIN (BEAKER) (test kpwb=911) 18 ng/mL 5-275 [id number] 14:02:00 Test Item Value Reference Range Comments PARTIAL THROMBOPLASTIN TIME (BEAKER) (test 38.9 seconds 22.5-36.0 pzec=378) THROMBIN [id number] 13:59:00 Test Item Value Reference Range Comments THROMBIN TIME (BEAKER) (test bjke=560) 20.2 secs 13.8-20.0 IRON, TIBC, % SAT. (WITHOUT FERRITIN)2018-08-14 13:56:00 Test Item Value Reference Range Comments IRON (BEAKER) (test yswd=125) 29 ug/dL 40-160 TOTAL IRON BINDING CAPACITY (BEAKER) (test 386 ug/dL 250-450 qxdt=353) IRON % SATURATION (2) (BEAKER) (test hxvb=9886) 8 % 20-55 CBC W/PLT COUNT & AUTO [id number] 13:45:00 Test Item Value Reference Range Comments WHITE BLOOD CELL COUNT (BEAKER) (test ejxu=342) 3.3 K/ L 3.5-10.5 RED BLOOD CELL COUNT (BEAKER) (test ucwh=458) 3.47 M/ L 3.93-5.22 HEMOGLOBIN (BEAKER) (test jeyu=674) 10.3 GM/DL 11.2-15.7 HEMATOCRIT (BEAKER) (test ufcx=042) 31.6 % 34.1-44.9 MEAN CORPUSCULAR VOLUME (BEAKER) (test wgyz=480) 91.1 fL 79.4-94.8 MEAN CORPUSCULAR HEMOGLOBIN (BEAKER) (test 29.7 pg 25.6-32.2 qwke=542) MEAN CORPUSCULAR HEMOGLOBIN CONC (BEAKER) (test 32.6 GM/DL 32.2-35.5 likh=470) RED CELL DISTRIBUTION WIDTH (BEAKER) (test 13.9 % 11.7-14.4 urlw=238) PLATELET COUNT (BEAKER) (test iqvh=267) 52 K/CU MM 150-450 MEAN PLATELET VOLUME (BEAKER) (test utve=847) 11.7 fL 9.4-12.3 NUCLEATED RED BLOOD CELLS (BEAKER) (test 0 /100 WBC 0-0 iorl=255) NEUTROPHILS RELATIVE PERCENT (BEAKER) (test 48 % munf=619) LYMPHOCYTES RELATIVE PERCENT (BEAKER) (test 39 % lnvf=765) MONOCYTES RELATIVE PERCENT (BEAKER) (test 9 % ncxg=873) EOSINOPHILS RELATIVE PERCENT (BEAKER) (test 4 % nxfn=327) BASOPHILS RELATIVE PERCENT (BEAKER) (test 0 % jivg=449) NEUTROPHILS ABSOLUTE COUNT (BEAKER) (test 1.55 K/ L 1.56-6.13 wbfe=271) LYMPHOCYTES ABSOLUTE COUNT (BEAKER) (test 1.26 K/ L 1.18-3.74 mqap=772) MONOCYTES ABSOLUTE COUNT (BEAKER) (test gule=805) 0.29 K/ L 0.24-0.36 EOSINOPHILS ABSOLUTE COUNT (BEAKER) (test 0.13 K/ L 0.04-0.36 fkor=609) BASOPHILS ABSOLUTE COUNT (BEAKER) (test lcyj=876) 0.01 K/ L 0.01-0.08 IMMATURE GRANULOCYTES-RELATIVE PERCENT (BEAKER) 0 % 0-1 (test nuvw=9869) [id number] 11:58:00 Test Item Value Reference Range Comments PHOSPHORUS (BEAKER) (test fldb=531) 4.1 mg/dL 2.3-4.7 [id number] 11:58:00 Test Item Value Reference Range Comments MAGNESIUM (BEAKER) (test dhuq=410) 1.8 mg/dL 1.6-2.6 COMPREHENSIVE METABOLIC [id number] 11:58:00 Test Item Value Reference Range Comments TOTAL PROTEIN (BEAKER) 6.8 gm/dL 6.0-8.3 (test okvx=931) ALBUMIN (BEAKER) (test 3.6 g/dL 3.5-5.0 uhrl=4066) ALKALINE PHOSPHATASE 82 U/L 40-150 (BEAKER) (test xmnj=439) BILIRUBIN TOTAL (BEAKER) 0.4 mg/dL 0.2-1.2 (test gkdm=768) SODIUM (BEAKER) (test 139 meq/L 136-145 mupz=607) POTASSIUM (BEAKER) (test 3.6 meq/L 3.5-5.1 iplo=606) CHLORIDE (BEAKER) (test 108 meq/L 98-107 fqhb=111) CO2 (BEAKER) (test 24 meq/L 22-29 pvkc=895) BLOOD UREA NITROGEN 8 mg/dL 7-21 (BEAKER) (test hips=892) CREATININE (BEAKER) (test 0.69 mg/dL 0.57-1.25 yzud=876) GLUCOSE RANDOM (BEAKER) 87 mg/dL 70-105 (test hesl=728) CALCIUM (BEAKER) (test 9.1 mg/dL 8.4-10.2 tkcm=579) AST (SGOT) (BEAKER) (test 14 U/L 5-34 uhno=992) ALT (SGPT) (BEAKER) (test 12 U/L 6-55 oyul=335) EGFR (BEAKER) (test 105 mL/min/1.73 sq ESTIMATED GFR IS NOT nepf=9182) m ACCURATE CREATININE CLEARANCE IN PREDICTING GLOMERULAR FILTRATION RATE. ESTIMATED GFR IS NOT APPLICABLE FOR DIALYSIS PATIENTS. [id number] 11:56:00 Test Item Value Reference Range Comments PARTIAL THROMBOPLASTIN TIME (BEAKER) (test 138.3 seconds 22.5-36.0 fbjm=916) 6 hours after starting heparin infusion and as indicated per sliding scalePROTHROMBIN [id number] 11:53:00 Test Item Value Reference Range Comments PROTIME (BEAKER) (test jqjl=132) 15.3 seconds 11.7-14.7 INR (BEAKER) (test bwom=951) 1.2 <=5.9 RECOMMENDED COUMADIN/WARFARIN INR THERAPY RANGESSTANDARD DOSE: 2.0 - 3.0 Includes: PROPHYLAXIS forvenous thrombosis, systemic embolization; TREATMENT for venous thrombosis and/or pulmonary embolus.HIGH RISK: Target INR is 2.5-3.5 for patients with mechanical heart valves.6 hours after starting heparin infusion and as indicated per sliding scaleCBC W/PLT COUNT & AUTO [id number] 11:25:00 Test Item Value Reference Range Comments WHITE BLOOD CELL COUNT (BEAKER) (test trrm=808) 3.4 K/ L 3.5-10.5 RED BLOOD CELL COUNT (BEAKER) (test npkg=733) 3.66 M/ L 3.93-5.22 HEMOGLOBIN (BEAKER) (test glar=114) 10.6 GM/DL 11.2-15.7 HEMATOCRIT (BEAKER) (test egjp=368) 33.3 % 34.1-44.9 MEAN CORPUSCULAR VOLUME (BEAKER) (test kvjx=563) 91.0 fL 79.4-94.8 MEAN CORPUSCULAR HEMOGLOBIN (BEAKER) (test 29.0 pg 25.6-32.2 rvai=610) MEAN CORPUSCULAR HEMOGLOBIN CONC (BEAKER) (test 31.8 GM/DL 32.2-35.5 jgal=028) RED CELL DISTRIBUTION WIDTH (BEAKER) (test 13.9 % 11.7-14.4 wzwl=445) PLATELET COUNT (BEAKER) (test atya=410) 47 K/CU MM 150-450 MEAN PLATELET VOLUME (BEAKER) (test jffu=687) 11.9 fL 9.4-12.3 NUCLEATED RED BLOOD CELLS (BEAKER) (test 0 /100 WBC 0-0 nrhf=489) NEUTROPHILS RELATIVE PERCENT (BEAKER) (test 47 % jolp=822) LYMPHOCYTES RELATIVE PERCENT (BEAKER) (test 38 % cmoi=616) MONOCYTES RELATIVE PERCENT (BEAKER) (test 10 % wnzh=053) EOSINOPHILS RELATIVE PERCENT (BEAKER) (test 4 % kjqc=687) BASOPHILS RELATIVE PERCENT (BEAKER) (test 0 % mdqe=653) NEUTROPHILS ABSOLUTE COUNT (BEAKER) (test 1.58 K/ L 1.56-6.13 dkbe=989) LYMPHOCYTES ABSOLUTE COUNT (BEAKER) (test 1.28 K/ L 1.18-3.74 hxrl=854) MONOCYTES ABSOLUTE COUNT (BEAKER) (test dpir=412) 0.33 K/ L 0.24-0.36 EOSINOPHILS ABSOLUTE COUNT (BEAKER) (test 0.14 K/ L 0.04-0.36 wkec=705) BASOPHILS ABSOLUTE COUNT (BEAKER) (test dgry=713) 0.01 K/ L 0.01-0.08 IMMATURE GRANULOCYTES-RELATIVE PERCENT (BEAKER) 0 % 0-1 (test gxvk=6309)
[2019-10-02 04:25] LABS: HBsAG Nonreactive (Nonreactive)
== END 2019-09-29 09:00 | disposition home or self-care (01) | DRG 807 ==
LOC: 2ND-WC 01:07
PROVIDERS: ADMIT Specialist; ATTEND Specialist
PROC: 10907ZC Drainage of Amniotic Fluid, Therapeutic from Products of Conception, Via Natural or Artificial Opening (ICD-10-PCS; principal; 2019-09-28)
PROC: 10E0XZZ Delivery of Products of Conception, External Approach (ICD-10-PCS; 2019-09-28)
DX: O62.2 Other uterine inertia (principal); Z37.0 Single live birth; Z3A.38 38 weeks gestation of pregnancy; O75.89 Other specified complications of labor and delivery; Z86.72 Personal history of thrombophlebitis; Z79.01 Long term (current) use of anticoagulants; Z23 Encounter for immunization
CPT/HCPCS: 36415; 81003; 85025; 86592; 86901; 87340; 90471; 90715; J0595; J2550; J2590; J7120; Q2035

== ENCOUNTER 2020-01-22 16:25 | Emergency (ER) | payer OTHER ==
--- OUTSIDE RECORDS SUMMARY | 2020-01-22 16:30 | XMS REPORT ---
:1995 [facility] Address [address] [place] [address] Dr. Alejo [address] [place] [id number] Care Team Providers Name Role Phone LEODAN ALICIAY RAUL DIAZTONYLauren Unavailable Unavailable Problems This patient has no known problems. Allergies, Adverse Reactions, Alerts This patient has no known allergies or adverse reactions. Medications This patient has no known medications. Results Test Description Test Time Test Comments Text Results Atomic Results Result Comments BASIC METABOLIC PANEL 2018-08-18 14:57:00 Test Item Value Reference Range Comments SODIUM (BEAKER) (test 139 meq/L 136-145 wesz=051) POTASSIUM (BEAKER) (test 3.3 meq/L 3.5-5.1 sypp=313) CHLORIDE (BEAKER) (test 107 meq/L 98-107 uivl=589) CO2 (BEAKER) (test oszw=221) 26 meq/L 22-29 BLOOD UREA NITROGEN (BEAKER) 9 mg/dL 7-21 (test waxn=992) CREATININE (BEAKER) (test 0.80 mg/dL 0.57-1.25 migb=964) GLUCOSE RANDOM (BEAKER) 94 mg/dL 70-105 (test hqzh=979) CALCIUM (BEAKER) (test 8.8 mg/dL 8.4-10.2 lfya=251) EGFR (BEAKER) (test 89 mL/min/1.73 sq m ESTIMATED GFR IS NOT pidp=0464) ACCURATE CREATININE CLEARANCE IN PREDICTING GLOMERULAR FILTRATION RATE. ESTIMATED GFR IS NOT APPLICABLE FOR DIALYSIS PATIENTS. [id number] 14:51:00 Test Item Value Reference Range Comments PARTIAL THROMBOPLASTIN TIME (BEAKER) (test 28.1 seconds 22.5-36.0 ciao=914) LUPUS ANTICOAGULANT SCREEN WITH REFLEX TO [id number] 13:07:00 Test Item Value Reference Range Comments DRVV SCREEN RATIO (BEAKER) (test 0.97 <1.20 elgh=7108) DRVV INTERPRETATION (BEAKER) 1:1 mix resulted in (test jhva=3882) correction into normal range and lupus screening tests negative, suggestive of factor deficiency. PROTIME (BEAKER) (test wilh=482) 13.3 seconds 11.7-14.7 INR (BEAKER) (test vmiz=924) 1.2 <=5.9 PARTIAL THROMBOPLASTIN TIME 36.9 seconds 22.5-36.0 (BEAKER) (test lopf=341) PTT-LA (BEAKER) (test 46.9 32.0-41.8 [id number]) [id number] ([facility] Trudi Osman MD (test rorz=7733) (electronic signature) FACTOR 5 LEIDEN PCR (THROMBOTIC RISK)2018-08-18 12:58:00 Test Item Value Reference Range Comments FACTOR V LEIDEN (BEAKER) Negative for the R506Q (Factor (test iveu=186) V Leiden) mutation [id number] ([facility]) Trudi Osman MD (test imoa=0658) (electronic signature) This test is a genotyping [...] was developed and [facility]. It has not been cleared or approved by the U.S. Food and Drug Administration (FDA), since FDA approval is not required for clinical use of the test. Validation was done as required by the Clinical Laboratory Improvement Amendments of 1988.[id number] 12:54:00 Test Item Value Reference Range Comments PARTIAL THROMBOPLASTIN TIME (BEAKER) (test 56.1 seconds 22.5-36.0 icra=864) BASIC METABOLIC [id number] 12:51:00 Test Item Value Reference Range Comments SODIUM (BEAKER) (test 141 meq/L 136-145 ayse=166) POTASSIUM (BEAKER) (test 2.9 meq/L 3.5-5.1 dduy=097) CHLORIDE (BEAKER) (test 107 meq/L 98-107 fsoc=262) CO2 (BEAKER) (test 28 meq/L 22-29 vlcz=399) BLOOD UREA NITROGEN 9 mg/dL 7-21 (BEAKER) (test yjbd=196) CREATININE (BEAKER) (test 0.85 mg/dL 0.57-1.25 mqrj=710) GLUCOSE RANDOM (BEAKER) 106 mg/dL 70-105 (test xttl=243) CALCIUM (BEAKER) (test 8.9 mg/dL 8.4-10.2 mdwn=210) EGFR (BEAKER) (test 83 mL/min/1.73 sq m ESTIMATED GFR IS NOT qksd=9245) ACCURATE CREATININE CLEARANCE IN PREDICTING GLOMERULAR FILTRATION RATE. ESTIMATED GFR IS NOT APPLICABLE FOR DIALYSIS PATIENTS. BETA-2 GLYCOPROTEIN [id number] 10:10:00 Test Item Value Reference Range Comments B2 GLYCOPROTEIN AUTOVERIFICATION Refer to individual COMPONENT (test hdsd=7349) B2-Glycoprotein IgG, IgM and IgA results. [id number] 02:03:00 Test Item Value Reference Range Comments PARTIAL THROMBOPLASTIN TIME (BEAKER) (test 65.2 seconds 22.5-36.0 gpon=759) CBC (HEMOGRAM ONLY)2018-08-18 00:40:00 Test Item Value Reference Range Comments WHITE BLOOD CELL COUNT (BEAKER) (test rvty=784) 8.2 K/ L 3.5-10.5 RED BLOOD CELL COUNT (BEAKER) (test wygu=691) 3.12 M/ L 3.93-5.22 HEMOGLOBIN (BEAKER) (test lhcz=862) 9.5 GM/DL 11.2-15.7 HEMATOCRIT (BEAKER) (test mixy=163) 27.8 % 34.1-44.9 MEAN CORPUSCULAR VOLUME (BEAKER) (test raeo=126) 89.1 fL 79.4-94.8 MEAN CORPUSCULAR HEMOGLOBIN (BEAKER) (test 30.4 pg 25.6-32.2 tmvh=118) MEAN CORPUSCULAR HEMOGLOBIN CONC (BEAKER) (test 34.2 GM/DL 32.2-35.5 kczg=125) RED CELL DISTRIBUTION WIDTH (BEAKER) (test 13.5 % 11.7-14.4 cree=628) PLATELET COUNT (BEAKER) (test rfqp=070) 109 K/CU MM 150-450 MEAN PLATELET VOLUME (BEAKER) (test lwzo=706) 10.5 fL 9.4-12.3 NUCLEATED RED BLOOD CELLS (BEAKER) (test 0 /100 WBC 0-0 qdor=606) SCREEN, [id number] 16:01:00 Test Item Value Reference Range Comments TEST URINE (BEAKER) (test kzef=649) Negative HEXAGONAL [id number] 13:46:00 Test Item Value Reference Range Comments HEXAGONAL PHOSPHOLIPID (BEAKER) (test jyay=4215) Negative BASIC METABOLIC [id number] 09:36:00 Test Item Value Reference Range Comments SODIUM (BEAKER) (test 142 meq/L 136-145 idch=018) POTASSIUM (BEAKER) (test 3.3 meq/L 3.5-5.1 obrf=199) CHLORIDE (BEAKER) (test 112 meq/L 98-107 wmlj=030) CO2 (BEAKER) (test 23 meq/L 22-29 dryk=919) BLOOD UREA NITROGEN 5 mg/dL 7-21 (BEAKER) (test qduu=172) CREATININE (BEAKER) (test 0.68 mg/dL 0.57-1.25 vlvc=627) GLUCOSE RANDOM (BEAKER) 86 mg/dL 70-105 (test mpzu=589) CALCIUM (BEAKER) (test 8.8 mg/dL 8.4-10.2 szev=184) EGFR (BEAKER) (test 107 mL/min/1.73 sq m ESTIMATED GFR IS NOT rfsj=3287) ACCURATE CREATININE CLEARANCE IN PREDICTING GLOMERULAR FILTRATION RATE. ESTIMATED GFR IS NOT APPLICABLE FOR DIALYSIS PATIENTS. [id number] 09:07:00 Test Item Value Reference Range Comments PARTIAL THROMBOPLASTIN TIME (BEAKER) (test 64.2 seconds 22.5-36.0 lpqr=212) CBC W/PLT COUNT & AUTO [id number] 08:54:00 Test Item Value Reference Range Comments WHITE BLOOD CELL COUNT (BEAKER) (test ftmm=132) 5.7 K/ L 3.5-10.5 RED BLOOD CELL COUNT (BEAKER) (test qqho=576) 3.00 M/ L 3.93-5.22 HEMOGLOBIN (BEAKER) (test ptjp=575) 8.9 GM/DL 11.2-15.7 HEMATOCRIT (BEAKER) (test nfbo=832) 27.6 % 34.1-44.9 MEAN CORPUSCULAR VOLUME (BEAKER) (test tcfo=171) 92.0 fL 79.4-94.8 MEAN CORPUSCULAR HEMOGLOBIN (BEAKER) (test 29.7 pg 25.6-32.2 cpsi=925) MEAN CORPUSCULAR HEMOGLOBIN CONC (BEAKER) (test 32.2 GM/DL 32.2-35.5 ezgh=447) RED CELL DISTRIBUTION WIDTH (BEAKER) (test 13.6 % 11.7-14.4 riux=232) PLATELET COUNT (BEAKER) (test rgit=386) 82 K/CU MM 150-450 MEAN PLATELET VOLUME (BEAKER) (test jkin=879) 10.9 fL 9.4-12.3 NUCLEATED RED BLOOD CELLS (BEAKER) (test 0 /100 WBC 0-0 iicz=444) NEUTROPHILS RELATIVE PERCENT (BEAKER) (test 57 % kiks=166) LYMPHOCYTES RELATIVE PERCENT (BEAKER) (test 34 % jfbm=750) MONOCYTES RELATIVE PERCENT (BEAKER) (test 8 % apyd=150) EOSINOPHILS RELATIVE PERCENT (BEAKER) (test 0 % lgry=483) BASOPHILS RELATIVE PERCENT (BEAKER) (test 0 % zbfw=532) NEUTROPHILS ABSOLUTE COUNT (BEAKER) (test 3.29 K/ L 1.56-6.13 odrc=939) LYMPHOCYTES ABSOLUTE COUNT (BEAKER) (test 1.93 K/ L 1.18-3.74 morp=625) MONOCYTES ABSOLUTE COUNT (BEAKER) (test ptks=427) 0.45 K/ L 0.24-0.36 EOSINOPHILS ABSOLUTE COUNT (BEAKER) (test 0.02 K/ L 0.04-0.36 nyxc=447) BASOPHILS ABSOLUTE COUNT (BEAKER) (test emee=294) 0.01 K/ L 0.01-0.08 IMMATURE GRANULOCYTES-RELATIVE PERCENT (BEAKER) 1 % 0-1 (test ugbv=3079) VITAMIN B12 AND [id number] 06:57:00 Test Item Value Reference Range Comments VITAMIN B12 (BEAKER) (test imbm=530) 188 pg/mL 213-816 FOLATE (BEAKER) (test ebtu=440) 9.0 ng/mL >=7.0 PERIPHERAL BLOOD SMEAR - HOLD [id number] 06:09:00 Test Item Value Reference Range Comments PERIPHERAL SMEAR SAVE (BEAKER) (test nrnz=8051) Yes BASIC METABOLIC [id number] 05:28:00 Test Item Value Reference Range Comments SODIUM (BEAKER) (test 139 meq/L 136-145 trfa=708) POTASSIUM (BEAKER) (test 3.5 meq/L 3.5-5.1 cbly=083) CHLORIDE (BEAKER) (test 110 meq/L 98-107 usva=552) CO2 (BEAKER) (test 21 meq/L 22-29 varj=002) BLOOD UREA NITROGEN 8 mg/dL 7-21 (BEAKER) (test ubzi=869) CREATININE (BEAKER) (test 0.68 mg/dL 0.57-1.25 ybxg=135) GLUCOSE RANDOM (BEAKER) 98 mg/dL 70-105 (test duhm=929) CALCIUM (BEAKER) (test 9.0 mg/dL 8.4-10.2 amjr=798) EGFR (BEAKER) (test 107 mL/min/1.73 sq m ESTIMATED GFR IS NOT kcjs=5112) ACCURATE CREATININE CLEARANCE IN PREDICTING GLOMERULAR FILTRATION RATE. ESTIMATED GFR IS NOT APPLICABLE FOR DIALYSIS PATIENTS. [id number] 05:13:00 Test Item Value Reference Range Comments PARTIAL THROMBOPLASTIN TIME (BEAKER) (test 100.4 seconds 22.5-36.0 vkmi=526) CBC W/PLT COUNT & AUTO [id number] 05:10:00 Test Item Value Reference Range Comments WHITE BLOOD CELL COUNT (BEAKER) (test ziub=130) 5.0 K/ L 3.5-10.5 RED BLOOD CELL COUNT (BEAKER) (test ysnx=596) 3.17 M/ L 3.93-5.22 HEMOGLOBIN (BEAKER) (test hmpx=869) 9.3 GM/DL 11.2-15.7 HEMATOCRIT (BEAKER) (test ihju=263) 29.1 % 34.1-44.9 MEAN CORPUSCULAR VOLUME (BEAKER) (test anxi=270) 91.8 fL 79.4-94.8 MEAN CORPUSCULAR HEMOGLOBIN (BEAKER) (test 29.3 pg 25.6-32.2 zrqu=745) MEAN CORPUSCULAR HEMOGLOBIN CONC (BEAKER) (test 32.0 GM/DL 32.2-35.5 cyls=580) RED CELL DISTRIBUTION WIDTH (BEAKER) (test 13.5 % 11.7-14.4 obtc=795) PLATELET COUNT (BEAKER) (test aocp=010) 77 K/CU MM 150-450 MEAN PLATELET VOLUME (BEAKER) (test bxww=736) 11.2 fL 9.4-12.3 NUCLEATED RED BLOOD CELLS (BEAKER) (test 0 /100 WBC 0-0 fdug=358) NEUTROPHILS RELATIVE PERCENT (BEAKER) (test 66 % kklj=820) LYMPHOCYTES RELATIVE PERCENT (BEAKER) (test 24 % mhrg=076) MONOCYTES RELATIVE PERCENT (BEAKER) (test 9 % yshk=125) EOSINOPHILS RELATIVE PERCENT (BEAKER) (test 0 % dkus=447) BASOPHILS RELATIVE PERCENT (BEAKER) (test 0 % ownp=477) NEUTROPHILS ABSOLUTE COUNT (BEAKER) (test 3.29 K/ L 1.56-6.13 aiae=947) LYMPHOCYTES ABSOLUTE COUNT (BEAKER) (test 1.21 K/ L 1.18-3.74 afsj=934) MONOCYTES ABSOLUTE COUNT (BEAKER) (test xcgx=196) 0.45 K/ L 0.24-0.36 EOSINOPHILS ABSOLUTE COUNT (BEAKER) (test 0.01 K/ L 0.04-0.36 phvp=376) BASOPHILS ABSOLUTE COUNT (BEAKER) (test pwci=136) 0.01 K/ L 0.01-0.08 IMMATURE GRANULOCYTES-RELATIVE PERCENT (BEAKER) 0 % 0-1 (test bzkw=0853) CT, CTA [id number] 17:40:00(delayed CTA for venous phase imagingAddendum BeginsREPORT STATUS:A Addendum: August 15, 2018 at 1745 hours I have reviewed the CT images for this study and I concur with the nonvascular imaging findings as dictated. Signed: [place] MDReport Verified Date/Time: 08/15/2018 17:40:51 Reading Location: [place] [address] Angio Body Reading RoomAddendum EndsFINAL REPORT CT venography of the abdomen and pelvis, 15 August 2018 INDICATION: This is a 22 year old female, per [facility], has known DVT, presents for assessment. This [...] dictated regarding the non-vascular findings by the Spring Machine Operator Radiologist. Signed: Pérez Meyers Verified Date/Time: 08/15/2018 12:35:56 Reading Location: [place] [address] Cardiology MRI PROTEIN C [id number] 15:09:00 Test Item Value Reference Range Comments PROTEIN C ACTIVITY (BEAKER) (test edfq=498) 108.0 % 70.0-130.0 [id number] 15:02:00 Test Item Value Reference Range Comments HOMOCYSTEINE (BEAKER) (test ubxv=091) 4.4 umol/L 5.1-15.4 CT, CHEST WITH IV CONTRAST- PE TEST [id number] 15:01:00FINAL REPORT TECHNIQUE: CT scan of the [...] nodes, nonspecific and likely reactive. Signed: Meliza Emanuel MDReport Verified Date/Time: 08/15/2018 15:01:15 Reading Location: [facility] C0Y CT Body Reading Room LACTATE DEHYDROGENASE (LDH)2018-08-15 14 :50:00 Test Item Value Reference Range Comments LACTATE DEHYDROGENASE (BEAKER) 217 U/L 125-220 Specimen slightly hemolyzed (test lnfw=788) HEPATIC FUNCTION [id number] 14:46:00 Test Item Value Reference Range Comments TOTAL PROTEIN (BEAKER) (test 7.1 gm/dL 6.0-8.3 Specimen slightly hemolyzed keqg=204) ALBUMIN (BEAKER) (test 3.6 g/dL 3.5-5.0 Specimen slightly hemolyzed shrd=7984) BILIRUBIN TOTAL (BEAKER) (test 0.4 mg/dL 0.2-1.2 Specimen slightly hemolyzed mpmh=804) BILIRUBIN DIRECT (BEAKER) (test 0.2 mg/dL 0.1-0.5 Specimen slightly hemolyzed chlr=976) ALKALINE PHOSPHATASE (BEAKER) 90 U/L 40-150 (test jste=024) AST (SGOT) (BEAKER) (test 22 U/L 5-34 Specimen slightly hemolyzed qjeg=935) ALT (SGPT) (BEAKER) (test 18 U/L 6-55 Specimen slightly hemolyzed lvjt=186) [id number] 14:42:00 Test Item Value Reference Range Comments HAPTOGLOBIN (BEAKER) (test oiut=490) 194 mg/dL 14-258 [id number] 14:42:00 Test Item Value Reference Range Comments PARTIAL THROMBOPLASTIN TIME (BEAKER) (test 76.2 seconds 22.5-36.0 mprn=723) RETICULOCYTE [id number] 14:25:00 Test Item Value Reference Range Comments RETICULOCYTE COUNT PCT (BEAKER) (test sxhs=788) 1.1 % 0.5-1.7 1:1 MIXING STUDY, [id number] 14:20:00 Test Item Value Reference Range Comments PROTIME (BEAKER) (test teyu=642) 13.3 seconds 11.7-14.7 PARTIAL THROMBOPLASTIN TIME (BEAKER) (test 36.9 seconds 22.5-36.0 wcde=097) PT 1/1 MIX (BEAKER) (test sssh=2919) 13.3 SECS 11.7-14.7 PTT 1/1 MIX (BEAKER) (test zctj=1556) 32.7 SECS 22.5-36.0 HEPARIN [id number] 14:10:00 Test Item Value Reference Range Comments HEPARIN ANTIBODY (BEAKER) (test pjrh=612) Negative Negative HEPARIN ANTIBODY OD (BEAKER) (test vpos=3594) 0.132 <0.400 4T TOTAL SCORE (BEAKER) (test fplv=5220) 6 Probability of HIT based on scoring system: 6-8=High probability; 4-5= intermediate probability; 0-3=low probabilityPERIPHERAL BLOOD SMEAR - PATHOLOGIST [id number] 13:56:00 Test Item Value Reference Range Comments PERIPHERAL SMR REVIEW (BEAKER) Cell counts confirmed. (test cjbv=8343) [id number] (BEAKER) Carolynn Lester M.D. (test swso=4433) (electronic signature) CARDIOLIPIN ANTIBODIES, IGG AND [id number] 11:46:00 Test Item Value Reference Range Comments ANTICARDIOLIPIN IGG ANTIBODY (BEAKER) (test < GPL <20.0 xwus=402) ANTICARDIOLIPIN IGM ANTIBODY (BEAKER) (test 3.8 MPL <20.0 hdhq=929) Anticardiolipin IgG Result Interpretation: <20.0 GPL Normal>/=20.0 GPL PositiveAnticardiolipin IgM Result Interpretation: <20.0 MPL Normal>/= 20.0 MPL PositiveCBC W/PLT COUNT & AUTO [id number] 07:48:00 Test Item Value Reference Range Comments WHITE BLOOD CELL COUNT (BEAKER) (test yphk=660) 2.8 K/ L 3.5-10.5 RED BLOOD CELL COUNT (BEAKER) (test hsjh=915) 3.38 M/ L 3.93-5.22 HEMOGLOBIN (BEAKER) (test lsao=838) 10.0 GM/DL 11.2-15.7 HEMATOCRIT (BEAKER) (test zitv=543) 30.9 % 34.1-44.9 MEAN CORPUSCULAR VOLUME (BEAKER) (test jcmx=448) 91.4 fL 79.4-94.8 MEAN CORPUSCULAR HEMOGLOBIN (BEAKER) (test 29.6 pg 25.6-32.2 oizy=792) MEAN CORPUSCULAR HEMOGLOBIN CONC (BEAKER) (test 32.4 GM/DL 32.2-35.5 hqhb=113) RED CELL DISTRIBUTION WIDTH (BEAKER) (test 13.8 % 11.7-14.4 hlpc=828) PLATELET COUNT (BEAKER) (test pveu=149) 48 K/CU MM 150-450 MEAN PLATELET VOLUME (BEAKER) (test ikpd=888) 12.0 fL 9.4-12.3 NUCLEATED RED BLOOD CELLS (BEAKER) (test 0 /100 WBC 0-0 mcrj=410) (CELLAVISION MANUAL DIFF)2018-08-15 07:48:00 Test Item Value Reference Range Comments NEUTROPHILS - REL (CELLAVISION)(BEAKER) (test 44 % pafa=9041) LYMPHOCYTES - REL (CELLAVISION)(BEAKER) (test 46 % uadj=7433) MONOCYTES - REL (CELLAVISION)(BEAKER) (test 1 % vtfz=9055) EOSINOPHILS - REL (CELLAVISION)(BEAKER) (test 7 % apmr=1630) BASOPHILS - REL (CELLAVISION)(BEAKER) (test 1 % lqcf=3918) ATYPICAL LYMPHOCYTES - REL (CELLAVISION)(BEAKER) 1 % 0-0 (test tfxn=5202) NEUTROPHILS - ABS (CELLAVISION)(BEAKER) (test 1.23 K/ul 1.56-6.13 ewxk=3682) LYMPHOCYTES - ABS (CELLAVISION)(BEAKER) (test 1.29 K/ul 1.18-3.74 aybz=5811) MONOCYTES - ABS (CELLAVISION)(BEAKER) (test 0.03 K/uL 0.24-0.36 orcl=1155) EOSINOPHILS - ABS (CELLAVISION)(BEAKER) (test 0.20 K/uL 0.04-0.36 bhqj=8733) BASOPHILS - ABS (CELLAVISION)(BEAKER) (test 0.03 K/uL 0.01-0.08 ketg=2371) ATYPICAL LYMPHOCYTES - ABS (CELLAVISION)(BEAKER) 0.03 K/uL 0.00-0.00 (test qaxj=8428) TOTAL COUNTED (BEAKER) (test ihwg=6047) 100 MANUAL NRBC PER 100 CELLS (BEAKER) (test 1 /100 WBC 0-0 ktie=9167) RBC MORPHOLOGY (BEAKER) (test jygh=863) Normal SMUDGE CELLS (BEAKER) (test wqkz=1445) Present GIANT PLATELETS (BEAKER) (test heqa=252) Present ARTIFACT (CELLAVISION)(BEAKER) (test kdzd=7736) Present PLATELET CONCENTRATION (CELLAVISION)(BEAKER) Decreased (test dued=8248) Received comment: User comments: Slide comments:BASIC METABOLIC [id number] 04:46:00 Test Item Value Reference Range Comments SODIUM (BEAKER) (test 140 meq/L 136-145 ghxu=968) POTASSIUM (BEAKER) (test 3.7 meq/L 3.5-5.1 mdrm=452) CHLORIDE (BEAKER) (test 110 meq/L 98-107 gbti=899) CO2 (BEAKER) (test 23 meq/L 22-29 pdgw=260) BLOOD UREA NITROGEN 8 mg/dL 7-21 (BEAKER) (test mefk=420) CREATININE (BEAKER) (test 0.70 mg/dL 0.57-1.25 darv=114) GLUCOSE RANDOM (BEAKER) 88 mg/dL 70-105 (test tsmi=779) CALCIUM (BEAKER) (test 8.8 mg/dL 8.4-10.2 devy=528) EGFR (BEAKER) (test 104 mL/min/1.73 sq m ESTIMATED GFR IS NOT cqbk=0553) ACCURATE CREATININE CLEARANCE IN PREDICTING GLOMERULAR FILTRATION RATE. ESTIMATED GFR IS NOT APPLICABLE FOR DIALYSIS PATIENTS. [id number] 04:45:00 Test Item Value Reference Range Comments PARTIAL THROMBOPLASTIN TIME (BEAKER) (test 86.9 seconds 22.5-36.0 shms=470) [id number] 21:11:00 Test Item Value Reference Range Comments PARTIAL THROMBOPLASTIN TIME (BEAKER) (test 103.9 seconds 22.5-36.0 btor=673) VITAMIN B12 AND [id number] 15:11:00 Test Item Value Reference Range Comments VITAMIN B12 (BEAKER) (test fkuz=675) 232 pg/mL 213-816 FOLATE (BEAKER) (test lgqj=489) 11.8 ng/mL >=7.0 [id number] 14:17:00 Test Item Value Reference Range Comments FERRITIN (BEAKER) (test cdsa=367) 18 ng/mL 5-275 [id number] 14:02:00 Test Item Value Reference Range Comments PARTIAL THROMBOPLASTIN TIME (BEAKER) (test 38.9 seconds 22.5-36.0 mmjo=119) THROMBIN [id number] 13:59:00 Test Item Value Reference Range Comments THROMBIN TIME (BEAKER) (test rljb=546) 20.2 secs 13.8-20.0 IRON, TIBC, % SAT. (WITHOUT FERRITIN)2018-08-14 13:56:00 Test Item Value Reference Range Comments IRON (BEAKER) (test mhle=387) 29 ug/dL 40-160 TOTAL IRON BINDING CAPACITY (BEAKER) (test 386 ug/dL 250-450 vmfz=770) IRON % SATURATION (2) (BEAKER) (test zthg=1989) 8 % 20-55 CBC W/PLT COUNT & AUTO [id number] 13:45:00 Test Item Value Reference Range Comments WHITE BLOOD CELL COUNT (BEAKER) (test qntj=388) 3.3 K/ L 3.5-10.5 RED BLOOD CELL COUNT (BEAKER) (test rppt=462) 3.47 M/ L 3.93-5.22 HEMOGLOBIN (BEAKER) (test xuie=973) 10.3 GM/DL 11.2-15.7 HEMATOCRIT (BEAKER) (test ezuf=385) 31.6 % 34.1-44.9 MEAN CORPUSCULAR VOLUME (BEAKER) (test rfkg=428) 91.1 fL 79.4-94.8 MEAN CORPUSCULAR HEMOGLOBIN (BEAKER) (test 29.7 pg 25.6-32.2 zluz=179) MEAN CORPUSCULAR HEMOGLOBIN CONC (BEAKER) (test 32.6 GM/DL 32.2-35.5 qykq=472) RED CELL DISTRIBUTION WIDTH (BEAKER) (test 13.9 % 11.7-14.4 zteh=586) PLATELET COUNT (BEAKER) (test mbmk=125) 52 K/CU MM 150-450 MEAN PLATELET VOLUME (BEAKER) (test cmqv=465) 11.7 fL 9.4-12.3 NUCLEATED RED BLOOD CELLS (BEAKER) (test 0 /100 WBC 0-0 vwhv=013) NEUTROPHILS RELATIVE PERCENT (BEAKER) (test 48 % nszi=372) LYMPHOCYTES RELATIVE PERCENT (BEAKER) (test 39 % cjbd=786) MONOCYTES RELATIVE PERCENT (BEAKER) (test 9 % rjml=252) EOSINOPHILS RELATIVE PERCENT (BEAKER) (test 4 % ybtk=472) BASOPHILS RELATIVE PERCENT (BEAKER) (test 0 % lwnh=247) NEUTROPHILS ABSOLUTE COUNT (BEAKER) (test 1.55 K/ L 1.56-6.13 cklj=792) LYMPHOCYTES ABSOLUTE COUNT (BEAKER) (test 1.26 K/ L 1.18-3.74 pedw=426) MONOCYTES ABSOLUTE COUNT (BEAKER) (test dvcm=388) 0.29 K/ L 0.24-0.36 EOSINOPHILS ABSOLUTE COUNT (BEAKER) (test 0.13 K/ L 0.04-0.36 tjll=456) BASOPHILS ABSOLUTE COUNT (BEAKER) (test iyda=911) 0.01 K/ L 0.01-0.08 IMMATURE GRANULOCYTES-RELATIVE PERCENT (BEAKER) 0 % 0-1 (test pqkr=7276) [id number] 11:58:00 Test Item Value Reference Range Comments PHOSPHORUS (BEAKER) (test jypg=001) 4.1 mg/dL 2.3-4.7 [id number] 11:58:00 Test Item Value Reference Range Comments MAGNESIUM (BEAKER) (test hsjb=566) 1.8 mg/dL 1.6-2.6 COMPREHENSIVE METABOLIC [id number] 11:58:00 Test Item Value Reference Range Comments TOTAL PROTEIN (BEAKER) 6.8 gm/dL 6.0-8.3 (test qedb=798) ALBUMIN (BEAKER) (test 3.6 g/dL 3.5-5.0 dmwv=1941) ALKALINE PHOSPHATASE 82 U/L 40-150 (BEAKER) (test wdpu=417) BILIRUBIN TOTAL (BEAKER) 0.4 mg/dL 0.2-1.2 (test vhft=224) SODIUM (BEAKER) (test 139 meq/L 136-145 oonz=444) POTASSIUM (BEAKER) (test 3.6 meq/L 3.5-5.1 usvu=442) CHLORIDE (BEAKER) (test 108 meq/L 98-107 zjvx=421) CO2 (BEAKER) (test 24 meq/L 22-29 unrm=901) BLOOD UREA NITROGEN 8 mg/dL 7-21 (BEAKER) (test ymxa=062) CREATININE (BEAKER) (test 0.69 mg/dL 0.57-1.25 texg=973) GLUCOSE RANDOM (BEAKER) 87 mg/dL 70-105 (test uoqu=895) CALCIUM (BEAKER) (test 9.1 mg/dL 8.4-10.2 lpsz=539) AST (SGOT) (BEAKER) (test 14 U/L 5-34 drww=551) ALT (SGPT) (BEAKER) (test 12 U/L 6-55 iope=784) EGFR (BEAKER) (test 105 mL/min/1.73 sq ESTIMATED GFR IS NOT txln=7253) m ACCURATE CREATININE CLEARANCE IN PREDICTING GLOMERULAR FILTRATION RATE. ESTIMATED GFR IS NOT APPLICABLE FOR DIALYSIS PATIENTS. [id number] 11:56:00 Test Item Value Reference Range Comments PARTIAL THROMBOPLASTIN TIME (BEAKER) (test 138.3 seconds 22.5-36.0 qhnq=532) 6 hours after starting heparin infusion and as indicated per sliding scalePROTHROMBIN [id number] 11:53:00 Test Item Value Reference Range Comments PROTIME (BEAKER) (test edey=956) 15.3 seconds 11.7-14.7 INR (BEAKER) (test vjrf=317) 1.2 <=5.9 RECOMMENDED COUMADIN/WARFARIN INR THERAPY RANGESSTANDARD DOSE: 2.0 - 3.0 Includes: PROPHYLAXIS forvenous thrombosis, systemic embolization; TREATMENT for venous thrombosis and/or pulmonary embolus.HIGH RISK: Target INR is 2.5-3.5 for patients with mechanical heart valves.6 hours after starting heparin infusion and as indicated per sliding scaleCBC W/PLT COUNT & AUTO [id number] 11:25:00 Test Item Value Reference Range Comments WHITE BLOOD CELL COUNT (BEAKER) (test tblb=716) 3.4 K/ L 3.5-10.5 RED BLOOD CELL COUNT (BEAKER) (test mjtf=708) 3.66 M/ L 3.93-5.22 HEMOGLOBIN (BEAKER) (test kvyp=583) 10.6 GM/DL 11.2-15.7 HEMATOCRIT (BEAKER) (test tavl=617) 33.3 % 34.1-44.9 MEAN CORPUSCULAR VOLUME (BEAKER) (test giss=725) 91.0 fL 79.4-94.8 MEAN CORPUSCULAR HEMOGLOBIN (BEAKER) (test 29.0 pg 25.6-32.2 qqfp=159) MEAN CORPUSCULAR HEMOGLOBIN CONC (BEAKER) (test 31.8 GM/DL 32.2-35.5 fzdo=384) RED CELL DISTRIBUTION WIDTH (BEAKER) (test 13.9 % 11.7-14.4 rhsl=528) PLATELET COUNT (BEAKER) (test yhdt=937) 47 K/CU MM 150-450 MEAN PLATELET VOLUME (BEAKER) (test sbdr=773) 11.9 fL 9.4-12.3 NUCLEATED RED BLOOD CELLS (BEAKER) (test 0 /100 WBC 0-0 cvlh=250) NEUTROPHILS RELATIVE PERCENT (BEAKER) (test 47 % xyiz=113) LYMPHOCYTES RELATIVE PERCENT (BEAKER) (test 38 % wazh=968) MONOCYTES RELATIVE PERCENT (BEAKER) (test 10 % gpfr=062) EOSINOPHILS RELATIVE PERCENT (BEAKER) (test 4 % vhwp=265) BASOPHILS RELATIVE PERCENT (BEAKER) (test 0 % kpiy=081) NEUTROPHILS ABSOLUTE COUNT (BEAKER) (test 1.58 K/ L 1.56-6.13 fqef=323) LYMPHOCYTES ABSOLUTE COUNT (BEAKER) (test 1.28 K/ L 1.18-3.74 jgkx=772) MONOCYTES ABSOLUTE COUNT (BEAKER) (test otdt=711) 0.33 K/ L 0.24-0.36 EOSINOPHILS ABSOLUTE COUNT (BEAKER) (test 0.14 K/ L 0.04-0.36 tspd=233) BASOPHILS ABSOLUTE COUNT (BEAKER) (test bfhz=127) 0.01 K/ L 0.01-0.08 IMMATURE GRANULOCYTES-RELATIVE PERCENT (BEAKER) 0 % 0-1 (test qmny=9463)
[2020-01-22] MEDS ORDERED: ONDANSETRON 4 MG/2 ML VIAL ONE (17:16)
[2020-01-22] MEDS ORDERED: FAMOTIDINE 20 MG/2 ML VIAL IV ONE (17:16)
[2020-01-22] MEDS ORDERED: MORPHINE 2 MG/ML SYR ONE (17:16)
[2020-01-22] MEDS ORDERED: NA CHLORIDE 0.9% 1,000 ML ONE (17:16)
[2020-01-22 17:34] LABS: ALT/SGPT 78 U/L (12-78); AST/SGOT 29 U/L (15-37); Albumin 3.6 g/dL (3.4-5.0); Alkaline Phosphatase 102 U/L (45-117); BUN Blood Urea Nitrogen 13 mg/dL (7-18); Bicarbonate 27 mmol/L (21-32); Bilirubin Direct < 0.1 mg/dL (0-0.2); Bilirubin Total 0.2 mg/dL (0.2-1.0); Glucose Level 105 mg/dL (74-106); Lipase 302 U/L (73-393); Potassium 4.1 mmol/L (3.5-5.1); Protein, Total 7.9 g/dL (6.4-8.2); Sodium Level 141 mmol/L (136-145)
[2020-01-22 17:35] LABS: Absolute Lymphocytes (CBC) 0.8 K/uL (0.7-4.9); Basophils % 0.3 % (0-1.3); Hematocrit 35.1 % (36.0-45.0); Lymphocytes % 14.6 % (15.3-44.8); MPV 7.6 fL (7.6-11.3); RBC Red Blood Cell Count 4.12 M/uL (3.86-4.86)
[2020-01-22 18:25] LABS: Urine Blood NEGATIVE (NEG); Urine Glucose NEGATIVE (NEG); Urine Protein NEGATIVE (NEG); Urine Specific Gravity >1.030 (1.005-1.030)
--- NOTE | 2020-01-22 18:28 | RAD REPORT ---
EXAM DESCRIPTION: CT - Abdomen Pelvis W Contrast - 01/22/2020 5:53 pm CLINICAL HISTORY: ABD PAIN COMPARISON: CT Abdomen Pelvis W Contrast 08/14/2018 TECHNIQUE: Biphasic, helical CT imaging of the abdomen and pelvis was performed following 100 ml non -ionic IV contrast. Oral contrast was given. All CT scans are performed using dose optimization technique as appropriate and may include automated exposure control or mA/KV adjustment according to patient size. FINDINGS: No suspicious findings in the lung bases. The liver, spleen, and pancreas show no suspicious findings. Gallbladder and biliary tree are also wi thout suspicious finding. Symmetric renal function is seen with no hydronephrosis or suspicious renal mass. No pyelonephritis o r acute parenchymal process. No bladder abnormalities. No adrenal abnormalities. No dilated bowel loops or bowel wall thickening. No appendicitis. Moderate stool volume throughout th e colon. No free air, free fluid or inflammatory stranding. No hernia, mass or bulky lymphadenopathy . Uterus and ovaries show no suspicious findings. No suspicious bony findings. IMPRESSION: Contrast enhanced CT abdomen and pelvis showing no emergent finding.
--- NOTE | 2020-01-22 18:35 | RAD REPORT ---
EXAM DESCRIPTION: US - Abdomen Exam Limited - 01/22/2020 6:09 pm CLINICAL HISTORY: ABD PAIN COMPARISON: Abdomen Pelvis W Contrast dated 08/14/2018 FINDINGS: No gallstones, sludge or other abnormalities within the gallbladder lumen. There is no wal l thickening or pericholecystic fluid. No common duct stone or biliary tree dilatation identified. IMPRESSION: Normal gallbladder and biliary tree ultrasound.
--- NOTE | 2020-01-22 18:53 | ER ---
Nurse's Notes [facility] Name: Amna Zayas Age: 24 yrs Sex: Female : 1995 Arrival Date: 01/22/2020 Time: 16:31 Bed 20 Private MD: Diagnosis: Abdominal tenderness;Functional dyspepsia Presentation: 01/21 16:38 Chief complaint: Patient states: Epigastric pain radiating to the back since today at ca1 1330. Took 2 Tylenol extra strength at 1600. reports nausea. Denies diarrhea and fever. Coronavirus screen: The patient has NOT traveled to [place] in the past 14 days. The patient has NOT had contact with known and/or suspected case of Coronavirus. Ebola Screen: Patient negative for fever greater than or equal to 101.5 degrees Fahrenheit, and additional compatible Ebola Virus Disease symptoms Patient denies exposure to infectious person. Patient denies travel to an Ebola-affected area in the 21 days before illness onset. No symptoms or risks identified at this time. Initial Sepsis Screen: Does the patient meet any 2 criteria? No. Patient's initial sepsis screen is negative. Does the patient have a suspected source of infection? No. Patient's initial sepsis screen is negative. Risk Assessment: Do you want to hurt yourself or someone else? Patient reports no desire to harm self or others. 16:38 Method Of Arrival: Ambulatory ca1 16:38 Acuity: VICENTA 3 ca1 17:26 Onset of symptoms was January 2020. mg2 Triage Assessment: 16:42 General: Appears in no apparent distress. uncomfortable, Behavior is calm, cooperative, ca1 appropriate for age. Pain: Complains of pain in epigastric area. GI: Reports nausea. 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 - Social history:: Smoking status: Patient denies any tobacco usage or history of. Screenin:25 Abuse screen: Denies threats or abuse. Denies injuries from another. Nutritional mg2 screening: No deficits noted. Tuberculosis screening: No symptoms or risk factors identified. Fall Risk IV access (20 points). Assessment: 17:23 General: Appears in no apparent distress. comfortable, Behavior is calm, cooperative. mg2 Pain: Complains of pain in right upper quadrant Pain radiates to right mid back Pain currently is 3 out of 10 on a pain scale. Quality of pain is described as aching, Pain began gradually, Is intermittent. Neuro: Level of Consciousness is awake, alert, obeys commands, Oriented to person, place, time, situation. Cardiovascular: Capillary refill < 3 seconds Patient's skin is warm and dry. Respiratory: Airway is patent Respiratory effort is even, unlabored, Respiratory pattern is regular, symmetrical. GI: Bowel sounds present X 4 quads. Abdomen is tender to palpation in right upper quadrant. : No signs and/or symptoms were reported regarding the genitourinary system. EENT: No signs and/or symptoms were reported regarding the EENT system. Derm: Skin is intact, is healthy with good turgor, Skin is pink, warm \T\ dry. normal. Musculoskeletal: Circulation, motion, and sensation intact. Capillary refill < 3 seconds. 18:01 Reassessment: Patient appears in no apparent distress at this time. Patient and/or mg2 family updated on plan of care and expected duration. Pain level reassessed. Patient is alert, oriented x 3, equal unlabored respirations, skin warm/dry/pink. 19:17 Reassessment: Patient denies pain at this time. Patient states feeling better. mg2 Vital Signs: 16:43 BP 105 / 68; Pulse 76; Resp 17 S; Temp 97.1(TE); Pulse Ox 96% on R/A; Weight 77.11 kg ca1 (R); Height 5 ft. 7 in. (170.18 cm) (R); 18:00 BP 109 / 67; Pulse 80; Resp 18; Pulse Ox 100% on R/A; mg2 19:17 BP 110 / 67; Pulse 81; Resp 18; Temp 97.8; Pulse Ox 100% on R/A; mg2 16:43 Body Mass Index 26.63 (77.11 kg, 170.18 cm) ca1 ED Course: 16:31 Patient arrived in ED. mr 16:40 Triage completed. ca1 16:42 Arm band placed on right wrist. ca1 16:46 Carlito Perez MD is Attending Physician. aidee 16:50 Jose Shannon, RN is Primary Nurse. mg2 17:25 Patient has correct armband on for positive identification. mg2 17:25 No provider procedures requiring assistance completed. Inserted saline lock: 20 gauge mg2 in right antecubital area, using aseptic technique. Blood collected. 17:53 CT Abd/Pelvis - IV Contrast Only In Process Unspecified. EDMS 18:10 US Abdomen Limited In Process Unspecified. EDMS 18:52 Aubrey Medina MD is Referral Physician. aidee 19:17 IV discontinued, intact, bleeding controlled, No redness/swelling at site. Pressure mg2 dressing applied. Administered Medications: 17:22 Drug: Pepcid 20 mg Route: IVP; Site: right antecubital; mg2 18:44 Follow up: Response: No adverse reaction mg2 17:23 Drug: NS 0.9% 1000 ml Route: IV; Rate: 1 bolus; Site: right antecubital; mg2 18:30 Follow up: Response: No adverse reaction; IV Status: Completed infusion; IV Intake: mg2 1000ml 19:16 Not Given (Patient Refused): morphine 2 mg IVP once; (PAIN>8) RASS on ADMN: Combtv4, mg2 Very Agttd3, Agttd2, Rstlss1, AlertClm0, Drwsy-1, LtSdtn-2, ModSdtn-3, DpSdtn-4, UnArsble-5 x2 19:16 Not Given (Patient Refused): Zofran (Ondansetron) 4 mg IVP once; over 2 minutes mg2 Intake: 18:30 IV: 1000ml; Total: 1000ml. mg2 Outcome: 18:52 Discharge ordered by . aidee 19:18 Discharged to home ambulatory, with family. mg2 19:18 Condition: stable 19:18 Discharge instructions given to patient, family, Instructed on discharge instructions, follow up and referral plans. medication usage, Demonstrated understanding of instructions, follow-up care, medications, Prescriptions given X 3. 19:18 Patient left the ED. mg2 Signatures: Dispatcher [employer] EDCarlito Sanchez MD MD [facility] mr Jose Shannon RN RN mg2 Katia Woo RN RN ca1 Corrections: (The following items were deleted from the chart) 16:43 16:42 General: Appears in no apparent distress. comfortable, Behavior is calm, ca1 cooperative, appropriate for age, ca1
--- NOTE | 2020-01-22 18:53 | EDPHYS ---
Physician Documentation [facility] Name: Amna Zayas Age: 24 yrs Sex: Female : 1995 Arrival Date: 01/22/2020 Time: 16:31 Bed 20 Private MD: YOVANI Physician Carlito Perez HPI: 01/21 17:02 This 24 yrs old Female presents to ER via Ambulatory with complaints of aidee Abdominal Pain, Back Pain. 17:02 The patient presents with pain that is acute, with no known mechanism of injury. The aidee symptoms are located in the low back. Onset: The symptoms/episode began/occurred today. The pain radiates to the left mid back and right mid back. Associated signs and symptoms: The patient has no apparent associated signs or symptoms. The problem was sustained from unknown cause. Modifying factors: The patient symptoms are alleviated by nothing, the patient symptoms are aggravated by nothing. Severity of symptoms: At their worst the symptoms were mild, moderate, in the emergency department the symptoms are unchanged. The patient has not experienced similar symptoms in the past. 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 - Social history:: Smoking status: Patient denies any tobacco usage or history of. ROS: 17:03 Constitutional: Negative for fever, chills, and weight loss, Eyes: Negative for injury, aidee pain, redness, and discharge, ENT: Negative for injury, pain, and discharge, Neck: Negative for injury, pain, and swelling, Cardiovascular: Negative for chest pain, palpitations, and edema, Respiratory: Negative for shortness of breath, cough, wheezing, and pleuritic chest pain, Back: Negative for injury and pain, : Negative for injury, bleeding, discharge, and swelling, MS/Extremity: Negative for injury and deformity, Skin: Negative for injury, rash, and discoloration, Neuro: Negative for headache, weakness, numbness, tingling, and seizure, Psych: Negative for depression, anxiety, suicide ideation, homicidal ideation, and hallucinations, Allergy/Immunology: Negative for hives, rash, and allergies, Endocrine: Negative for neck swelling, polydipsia, polyuria, polyphagia, and marked weight changes, Hematologic/Lymphatic: Negative for swollen nodes, abnormal bleeding, and unusual bruising. 17:03 Abdomen/GI: Positive for abdominal pain, of the epigastric area, right upper quadrant and left upper quadrant. Exam: 17:03 Constitutional: This is a well developed, well nourished patient who is awake, alert, aidee and in no acute distress. Head/Face: Normocephalic, atraumatic. Eyes: Pupils equal round and reactive to light, extra-ocular motions intact. Lids and lashes normal. Conjunctiva and sclera are non-icteric and not injected. Cornea within normal limits. Periorbital areas with no swelling, redness, or edema. ENT: Nares patent. No nasal discharge, no septal abnormalities noted. Tympanic membranes are normal and external auditory canals are clear. Oropharynx with no redness, swelling, or masses, exudates, or evidence of obstruction, uvula midline. Mucous membranes moist. Neck: Trachea midline, no thyromegaly or masses palpated, and no cervical lymphadenopathy. Supple, full range of motion without nuchal rigidity, or vertebral point tenderness. No Meningismus. Chest/axilla: Normal chest wall appearance and motion. Nontender with no deformity. No lesions are appreciated. Cardiovascular: Regular rate and rhythm with a normal S1 and S2. No gallops, murmurs, or rubs. Normal PMI, no JVD. No pulse deficits. Respiratory: Lungs have equal breath sounds bilaterally, clear to auscultation and percussion. No rales, rhonchi or wheezes noted. No increased work of breathing, no retractions or nasal flaring. Back: No spinal tenderness. No costovertebral tenderness. Full range of motion. Skin: Warm, dry with normal turgor. Normal color with no rashes, no lesions, and no evidence of cellulitis. MS/ Extremity: Pulses equal, no cyanosis. Neurovascular intact. Full, normal range of motion. Neuro: Awake and alert, GCS 15, oriented to person, place, time, and situation. Cranial nerves II-XII grossly intact. Motor strength 5/5 in all extremities. Sensory grossly intact. Cerebellar exam normal. Normal gait. Psych: Awake, alert, with orientation to person, place and time. Behavior, mood, and affect are within normal limits. 17:03 Abdomen/GI: Inspection: distension, Bowel sounds: normal, Palpation: abdomen is soft and non-tender, Liver: no appreciated palpable abnormalities, Hernia: not appreciated. Vital Signs: 16:43 BP 105 / 68; Pulse 76; Resp 17 S; Temp 97.1(TE); Pulse Ox 96% on R/A; Weight 77.11 kg ca1 (R); Height 5 ft. 7 in. (170.18 cm) (R); 18:00 BP 109 / 67; Pulse 80; Resp 18; Pulse Ox 100% on R/A; mg2 19:17 BP 110 / 67; Pulse 81; Resp 18; Temp 97.8; Pulse Ox 100% on R/A; mg2 16:43 Body Mass Index 26.63 (77.11 kg, 170.18 cm) ca1 MDM: 16:46 Patient medically screened. [facility] 17:04 Data reviewed: vital signs, nurses notes, lab test result(s), radiologic studies, CT aidee scan, ultrasound. 01/21 16:51 Order name: Basic Metabolic Panel; Complete Time: 18:46 mg2 01/21 16:51 Order name: CBC with Diff; Complete Time: 18:46 mg2 01/21 16:51 Order name: Creatinine for Radiology; Complete Time: 18:46 mg2 01/21 16:51 Order name: Hepatic Function; Complete Time: 18:46 mg2 01/21 16:51 Order name: Lipase; Complete Time: 18:46 mg2 01/21 17:55 Order name: Urine Dipstick--Ancillary (enter results); Complete Time: 18:46 bd 01/21 16:51 Order name: IV Saline Lock; Complete Time: 17:07 mg2 01/21 17:02 Order name: US Abdomen Limited; Complete Time: 18:46 aidee 01/21 17:02 Order name: CT Abd/Pelvis - IV Contrast Only; Complete Time: 18:46 aidee 01/21 17:55 Order name: Urine --Ancillary (enter results); Complete Time: 18:46 bd 01/21 16:51 Order name: Labs collected and sent; Complete Time: 17:07 mg2 Administered Medications: 17:22 Drug: Pepcid 20 mg Route: IVP; Site: right antecubital; mg2 18:44 Follow up: Response: No adverse reaction mg2 17:23 Drug: NS 0.9% 1000 ml Route: IV; Rate: 1 bolus; Site: right antecubital; mg2 18:30 Follow up: Response: No adverse reaction; IV Status: Completed infusion; IV Intake: mg2 1000ml 19:16 Not Given (Patient Refused): morphine 2 mg IVP once; (PAIN>8) RASS on ADMN: Combtv4, mg2 Very Agttd3, Agttd2, Rstlss1, AlertClm0, Drwsy-1, LtSdtn-2, ModSdtn-3, DpSdtn-4, UnArsble-5 x2 19:16 Not Given (Patient Refused): Zofran (Ondansetron) 4 mg IVP once; over 2 minutes mg2 Disposition: 01/22/20 18:52 Discharged to Home. Impression: Abdominal tenderness, Functional dyspepsia. - Condition is Fair. - Discharge Instructions: Abdominal Pain, Adult, Nausea and Vomiting, Adult, Abdominal Pain, Adult, [id number]. - Prescriptions for Bentyl 20 mg Oral Tablet - take 1 tablet by ORAL route every 6 hours As needed; 20 tablet. Protonix 40 mg Oral Tablet, Delayed Release (E.C.) - take 1 tablet by ORAL route once daily; 20 tablet. Zofran 4 mg Oral Tablet - take 1 tablet by ORAL route every 12 hours As needed; 20 tablet. - Medication Reconciliation Form, Thank You Letter, Antibiotic Education, Prescription Opioid Use form. - Follow up: Private Physician; When: 2 - 3 days; Reason: Recheck today's complaints, Continuance of care, Re-evaluation by your physician. Follow up: Aubrey Medina MD; When: 2 - 3 days; Reason: Recheck today's complaints, Continuance of care, Re-evaluation by your physician. - Problem is new. - Symptoms have improved. Signatures: Dispatcher [employer] Carlito Sanchez MD MD cha Gardose, Michele, RN RN mg2 Katia Woo RN RN ca1 Corrections: (The following items were deleted from the chart) 19:18 18:52 01/22/2020 18:52 Discharged to Home. Impression: Abdominal tenderness; Functional mg2 dyspepsia. Condition is Fair. Forms are Medication Reconciliation Form, Thank You Letter, Antibiotic Education, Prescription Opioid Use. Follow up: Private Physician; When: 2 - 3 days; Reason: Recheck today's complaints, Continuance of care, Re-evaluation by your physician. Follow up: Aubrey Medina; When: 2 - 3 days; Reason: Recheck today's complaints, Continuance of care, Re-evaluation by your physician. Problem is new. Symptoms have improved. aidee
[2020-01-22 20:44] VITALS: O2SAT 100
[2020-01-22 20:45] VITALS: BP 110/67; TEMP 97.8
== END 2020-01-22 19:18 | disposition home or self-care (01) ==
LOC: ER 16:25
DX: K30 Functional dyspepsia (principal)
CPT/HCPCS: 96361; 85025; 80048; 36415; 81025; 80076; 81003; 83690; 74177; 76705; 96374; 99284; Q9967; J7030; J2270; J2405

== ENCOUNTER 2020-08-23 14:06 | Emergency (ER) | payer OTHER ==
[2020-08-23] MEDS ORDERED: DIAZEPAM 5 MG TABLET ONE (14:54)
[2020-08-23 15:28] LABS: Basophils % 0.2 % (0-1.3); Hematocrit 35.9 % (36.0-45.0); Lymphocytes % 28.5 % (15.3-44.8); MPV 7.7 fL (7.6-11.3); RBC Red Blood Cell Count 4.01 M/uL (3.86-4.86)
[2020-08-23 15:33] LABS: Protime INR 0.98
[2020-08-23 15:46] LABS: Sodium Level 143 mmol/L (136-145)
[2020-08-23 15:47] LABS: BUN Blood Urea Nitrogen 15 mg/dL (7-18); Bicarbonate 24 mmol/L (21-32); Glucose Level 79 mg/dL (74-106); NT PRO-BNP 53 pg/mL (<125); Potassium 3.4 mmol/L (3.5-5.1); Troponin (Emerg Dept Use Only) < 0.02 ng/mL (0.0-0.045)
--- NOTE | 2020-08-23 16:16 | RAD REPORT ---
EXAM DESCRIPTION: CT - Chest For Pe Angio - 08/23/2020 4:05 pm CLINICAL HISTORY: Chest pain COMPARISON: None. TECHNIQUE: Dynamically enhanced axial 3 mm thick images of the chest were obtained during administra tion of <100> mL Isovue 370 IV contrast. Coronal and oblique reconstruction images were generated and reviewed. Exam utilizes a protocol for optimal evaluation of pulmonary arterial tree. Maximum intensity projections 3D imaging was utilized All CT scans are performed using dose optimization technique as appropriate and may include automated exposure control or mA/KV adjustment according to patient size. FINDINGS: A pulmonary embolus is not seen. A thoracic aortic aneurysm is not noted. A pleural effusion is not seen. A pericardial effusion is not seen. A lung consolidation is not present. IMPRESSION: Negative for a pulmonary embolism.
--- NOTE | 2020-08-23 16:17 | RAD REPORT ---
EXAM DESCRIPTION: Lesa Single View08/23/2020 3:23 pm CLINICAL HISTORY: Chest pain COMPARISON: none FINDINGS: The lungs appear clear of acute infiltrate. The heart is normal size IMPRESSION: No acute abnormalities displayed
--- NOTE | 2020-08-23 16:26 | ER ---
Nurse's Notes [facility] Name: Amna Zayas Age: 24 yrs Sex: Female : 1995 Arrival Date: 08/23/2020 Time: 14:07 Bed 6 Private MD: Diagnosis: Chest pain, unspecified;Shortness of breath Presentation: 08/23 14:21 Chief complaint: Patient states: "It started yesterday, I thought it was just jd3 indigestion, but today the shortness of breath got worse along with the chest pain. I am not an anxious person, but I am also having a lot of anxiety and lightheartedness with this.". Coronavirus screen: At this time, the client does not indicate any symptoms associated with coronavirus-19. Ebola Screen: Patient negative for fever greater than or equal to 101.5 degrees Fahrenheit, and additional compatible Ebola Virus Disease symptoms. Initial Sepsis Screen: Does the patient meet any 2 criteria? No. Patient's initial sepsis screen is negative. Does the patient have a suspected source of infection? No. Patient's initial sepsis screen is negative. Risk Assessment: Do you want to hurt yourself or someone else? Patient reports no desire to harm self or others. Onset of symptoms was August 22, 2020. 14:21 Method Of Arrival: Wheelchair jd3 14:21 Acuity: VICENTA 3 jd3 CLOTH HAND: 14:22 LMP N/A - Irregular menses jd3 14:30 LMP N/A - jl7 Historical: - Allergies: 14:24 No Known Allergies; jd3 - Home Meds: 14:24 Iron CR Oral daily [Active]; Lovenox 80 mg/0.8 mL Sub-Q syrg every 12 hours [Active]; jd3 Plaquenil 200 mg Oral tab 2 tabs once daily [Active]; Vitamin Oral tab 1 tab once daily [Active]; - PMHx: 14:24 Anemia; Blood clot at the R femoral Iliac Vein; Migraines; Possible ITP; jd3 - PSHx: 14:24 None; jd3 - Immunization history:: Adult Immunizations up to date. - Social history:: Smoking status: Patient denies any tobacco usage or history of. - Family history:: not pertinent. - Hospitalizations: : No recent hospitalization is reported. Screenin:00 Abuse screen: Denies threats or abuse. Denies injuries from another. Nutritional jl7 screening: No deficits noted. Tuberculosis screening: No symptoms or risk factors identified. Fall Risk IV access (20 points). Total Corado Fall Scale indicates No Risk (0-24 pts). Assessment: 14:20 General: Appears in no apparent distress. uncomfortable, Behavior is calm, cooperative, jl7 appropriate for age. Pain: Complains of pain in chest Pain does not radiate. Pain currently is 3 out of 10 on a pain scale. Quality of pain is described as "Tightness" Pain began 1 day ago. Is continuous. Neuro: Level of Consciousness is awake, alert, obeys commands, Oriented to person, place, time, situation. Cardiovascular: Patient's skin is warm and dry. Rhythm is regular. Respiratory: Airway is patent Respiratory effort is even, unlabored, Respiratory pattern is symmetrical, tachypnea. Derm: Skin is pink, warm \\T\\ dry. 14:50 Reassessment: BRET Alarcon at bedside attempting mid-line. jl7 Vital Signs: 14:22 BP 123 / 69; Pulse 96; Resp 16 S; Temp 97.8(O); Pulse Ox 100% on R/A; Weight 73.48 kg jd3 (R); Height 5 ft. 7 in. (170.18 cm) (R); Pain 3/10; 16:19 BP 109 / 85; Pulse 78; Resp 15; Pulse Ox 100% ; jl7 14:22 Body Mass Index 25.37 (73.48 kg, 170.18 cm) jd3 ED Course: 14:07 Patient arrived in ED. ag5 14:12 Dereck Piper MD is Attending Physician. rn 14:13 Leno Carey, BRET is Primary Nurse. jl7 14:22 Triage completed. jd3 14:23 Arm band placed on. jd3 14:32 Patient has correct armband on for positive identification. Placed in gown. Bed in low mh5 position. Call light in reach. Side rails up X 1. Adult w/ patient. Warm blanket given. clinical research monitor on. Pulse ox on. NIBP on. 14:32 EKG done, by ED staff, reviewed by Dereck Piper MD. 5 14:52 Radiology exam delayed due to IV insertion attempt and/or patient not having vm2 appropriate IV at this time. 15:00 Patient maintains SpO2 saturation greater than 95% on room air. jl7 15:14 Inserted saline lock: 18 gauge in right upper arm, using aseptic technique. Blood ag2 collected. 18G midline to right upper line. first attempt. 15:24 XRAY Chest (1 view) In Process Unspecified. EDMS 16:06 CT Chest For PE Angio In Process Unspecified. EDMS 17:12 No provider procedures requiring assistance completed. IV discontinued, intact, iw bleeding controlled, No redness/swelling at site. Pressure dressing applied. Administered Medications: 14:48 Not Given (Patient Refused): Valium 5 mg PO once jl7 Outcome: 16:25 Discharge ordered by . rn 17:11 Discharged to home ambulatory, with family. iw 17:11 Condition: good 17:11 Discharge instructions given to patient, family, Instructed on discharge instructions, follow up and referral plans. Demonstrated understanding of instructions, follow-up care. 17:13 Patient left the ED. iw Signatures: Dispatcher [employer] Tiara Rivera, RN Dereck Sutton MD MD rn Martinez, Maria 5 Leno Carey RN RN jl7 Elvia Olivier2 Amarjit Javier RN RN Agnes Beatty2 Pancho Fernández5
--- NOTE | 2020-08-23 16:27 | EDPHYS ---
Physician Documentation [facility] Name: Amna Zayas Age: 24 yrs Sex: Female : 1995 Arrival Date: 08/23/2020 Time: 14:07 Bed 6 Private MD: ED Physician Dereck Piper HPI: 08/23 14:40 This 24 yrs old Female presents to ER via Wheelchair with complaints of Chest rn Tightness, Shortness Of Breath, Nausea, Numbness Of Hand. 14:40 The patient or guardian reports chest pain that is located primarily in the substernal rn area, anterior chest wall, left. The pain does not radiate. Associated signs and symptoms: Pertinent positives: shortness of breath, Pertinent negatives: abdominal pain, cough, diaphoresis, lower extremity pain, lower extremity swelling, near syncope, recent travel, syncope, vomiting. The chest pain is described as a heaviness. Duration: The patient or guardian reports a single episode, that is still ongoing. Modifying factors: The symptoms are alleviated by nothing. the symptoms are aggravated by nothing. Severity of pain: At its worst the pain was mild in the emergency department the pain is unchanged. The patient has not experienced similar symptoms in the past. The patient has not recently seen a physician. Reports chest pain, sob, began [facility] N[facility]SE [facility]BUL[facility], not improving, felt fine prior, has not felt ill, no fever/cough/abd pain/change in taste or smell. No trauma. Has lupus and has had DVT 2 years ago, on lovenox. No pain with deep breath. Reports feeling tingling around mouth and both hands. No famhx of early cardiac problems. . HEAD OF RESEARCH & INSIGHTS: 14:22 LMP N/A - Irregular menses jd3 14:30 LMP N/A - jl7 Historical: - Allergies: 14:24 No Known Allergies; jd3 - Home Meds: 14:24 Iron CR Oral daily [Active]; Lovenox 80 mg/0.8 mL Sub-Q syrg every 12 hours [Active]; jd3 Plaquenil 200 mg Oral tab 2 tabs once daily [Active]; Vitamin Oral tab 1 tab once daily [Active]; - PMHx: 14:24 Anemia; Blood clot at the R femoral Iliac Vein; Migraines; Possible ITP; jd3 - PSHx: 14:24 None; jd3 - Immunization history:: Adult Immunizations up to date. - Social history:: Smoking status: Patient denies any tobacco usage or history of. - Family history:: not pertinent. - Hospitalizations: : No recent hospitalization is reported. ROS: 14:40 Constitutional: Negative for fever, chills, and weight loss, Eyes: Negative for injury, rn pain, redness, and discharge, Neck: Negative for injury, pain, and swelling, Cardiovascular: Negative for palpitations, and edema, Respiratory: Negative for cough, wheezing, and pleuritic chest pain, Abdomen/GI: Negative for abdominal pain, nausea, vomiting, diarrhea, and constipation, Back: Negative for injury and pain, MS/Extremity: Negative for injury and deformity, Skin: Negative for injury, rash, and discoloration, Neuro: Negative for headache, weakness, and seizure. Exam: 14:31 ECG was reviewed by the Attending Physician. rn 14:40 Constitutional: This is a well developed, well nourished patient who is awake, alert, rn hyperventilating, appears anxious Head/Face: Normocephalic, atraumatic. Eyes: Pupils equal round and reactive to light, extra-ocular motions intact. Lids and lashes normal. Conjunctiva and sclera are non-icteric and not injected. Cornea within normal limits. Periorbital areas with no swelling, redness, or edema. Cardiovascular: Regular rate and rhythm. No pulse deficits. Respiratory: No wheezing, no retractions, + mild tachypnea, able to control breathing when directed Abdomen/GI: soft, non-tender Skin: Warm, dry with normal turgor. Normal color with no rashes, no lesions, and no evidence of cellulitis. MS/ Extremity: Pulses equal, no cyanosis. Neurovascular intact. Full, normal range of motion. Equal circumference. Neuro: Awake and alert, GCS 15, oriented to person, place, time, and situation. Cranial nerves II-XII grossly intact. Motor strength 5/5 in all extremities. Sensory grossly intact. Cerebellar exam normal. Vital Signs: 14:22 BP 123 / 69; Pulse 96; Resp 16 S; Temp 97.8(O); Pulse Ox 100% on R/A; Weight 73.48 kg jd3 (R); Height 5 ft. 7 in. (170.18 cm) (R); Pain 3/10; 16:19 BP 109 / 85; Pulse 78; Resp 15; Pulse Ox 100% ; jl7 14:22 Body Mass Index 25.37 (73.48 kg, 170.18 cm) jd3 MDM: 14:12 Patient medically screened. rn 15:51 ED course: Pt improved without intervention, reports chest pain resolved, breathing rn better, ecg normal, normal vitals, no oxygen requirement. Will cont to observe and f/u labs/ct chest. 16:24 Differential diagnosis: acute pericarditis, anxiety, chest wall pain, costochondritis, rn esophagitis, gastroesophageal reflux disease (GERD), pericarditis, pleurisy, pneumonia, pneumothorax, pulmonary embolus, lupus related, PE, pleurisy, anxiety. Data reviewed: vital signs, nurses notes, lab test result(s), EKG, radiologic studies, CT scan, plain films, and as a result, I will discharge patient. Counseling: I had a detailed discussion with the patient and/or guardian regarding: the historical points, exam findings, and any diagnostic results supporting the discharge/admit diagnosis, lab results, radiology results, the need for outpatient follow up, to return to the emergency department if symptoms worsen or persist or if there are any questions or concerns that arise at home. Response to treatment: the patient's symptoms have markedly improved after treatment, the patient's condition has returned to base line, and as a result, I will discharge patient. Special discussion: Based on the patient's history, exam, and Dx evaluation, there is no indication for emergent intervention or inpatient Tx. It is understood by the patient/guardian that if the Sx's persist or worsen they need to return immediately for re-evaluation. I discussed with the patient/guardian in detail that at this point there is no indication for admission to the hospital. It is understood, however, that if the symptoms persist or worsen the patient needs to return immediately for re-evaluation. ED course: NO acute findings on blood or ct chest for PE, normal vitals, feels much better without intervention, will dc home with pcp and rheum f/u. . 08/23 14:31 Order name: Basic Metabolic Panel; Complete Time: 15:52 rn 08/23 14:31 Order name: CBC with Diff; Complete Time: 15:52 rn 08/23 14:31 Order name: NT PRO-BNP; Complete Time: 15:52 rn 08/23 14:31 Order name: Troponin (emerg Dept Use Only); Complete Time: 15:52 rn 08/23 14:32 Order name: PT-INR; Complete Time: 15:52 rn 08/23 14:32 Order name: Ptt, Activated; Complete Time: 15:52 rn 08/23 14:31 Order name: XRAY Chest (1 view); Complete Time: 16:18 rn 08/23 14:31 Order name: EKG; Complete Time: 14:32 rn 08/23 14:31 Order name: Cardiac monitoring; Complete Time: 14:32 rn 08/23 14:31 Order name: EKG - Nurse/Tech; Complete Time: 14:32 rn 08/23 14:31 Order name: CT Chest For PE Angio; Complete Time: 16:18 rn 08/23 14:31 Order name: O2 Per Protocol; Complete Time: 14:32 rn 08/23 14:31 Order name: O2 Sat Monitoring; Complete Time: 14:32 rn EC:31 Rate is 83 beats/min. Rhythm is regular. QRS [place] is Normal. [place] interval is normal. QRS rn interval is normal. QT interval is normal. No Q waves. T waves are Normal. No ST changes noted. Clinical impression: Normal ECG. Interpreted by me. Reviewed by me. Administered Medications: 14:48 Not Given (Patient Refused): Valium 5 mg PO once jl7 Disposition: 08/23/20 16:25 Discharged to Home. Impression: Chest pain, unspecified, Shortness of breath. - Condition is Stable. - Discharge Instructions: Nonspecific Chest Pain, Systemic Lupus Erythematosus, Adult, Pain Without a Known Cause, Shortness of Breath. - Medication Reconciliation Form, Thank You Letter, Antibiotic Education, Prescription Opioid Use form. - Follow up: Private Physician; When: As needed; Reason: Recheck today's complaints, Re-evaluation by your physician. - Problem is new. - Symptoms have improved. Signatures: Dispatcher [employer] EDMS Tiara Nguyen, RN BRET iw Dereck Piper MD MD rn Leal, Jahala, RN RN jl7 Amarijt Javier RN RN jd3 Corrections: (The following items were deleted from the chart) 17:13 16:25 08/23/2020 16:25 Discharged to Home. Impression: Chest pain, unspecified; iw Shortness of breath. Condition is Stable. Forms are Medication Reconciliation Form, Thank You Letter, Antibiotic Education, Prescription Opioid Use. Follow up: Private Physician; When: As needed; Reason: Recheck today's complaints, Re-evaluation by your physician. Problem is new. Symptoms have improved. rn
[2020-08-23] MEDS ORDERED: KETOROLAC 30 MG/ML INJ ONE (16:46)
[2020-08-23 17:24] VITALS: TEMP 97.8; O2SAT 100
[2020-08-23 17:25] VITALS: BP 109/85
--- NOTE | 2020-08-24 08:21 | EKG ---
Test Date: 2020-08-23 Test Time: 14:30:44 Order Picker/Assembler: ERIKA MEASUREMENT RESULTS: Intervals: Rate: 83 NC: 122 QRSD: 82 QT: 356 QTc: 418 [place]: P: 53 NC: 122 QRS: 44 T: 26 INTERPRETIVE STATEMENTS: Normal sinus rhythm Normal ECG No previous ECG available for comparison Electronically Signed On 08-24-20 08:19:26 CDT by Bairon Turk
--- OUTSIDE RECORDS SUMMARY | 2020-08-28 20:47 | XMS REPORT | Clinical Summary ---
:1995 Author Organization [facility] Address [address] [place] [address] Care Team Providers Name Role Phone Unavailable Primary Care Provider Unavailable Allergies No Known Allergies Medications Medication Sig Dispensed Refills Start Date End Date Status vitamin Take 1 tablet by 0 Active w/rqozzpx-syrh-gnpipc mouth daily. ( PLUS) 27 mg iron- 1 mg Tab ferrous sulfate 325 (65 Take 325 mg by 0 Active FE) MG tablet mouth daily with breakfast. acetaminophen (TYLENOL) Take 1,000 mg by 0 Active 500 MG tablet mouth every 6 (six) hours as needed for Pain. pantoprazole (PROTONIX) Take 1 tablet 30 tablet 0 08/18/2018 Active 40 MG tablet (40 mg total) by mouth daily. Active Problems Problem Noted Date DVT (deep venous thrombosis) 08/14/2018 Acute deep vein thrombosis (DVT) of right lower extrem ity, unspecified 08/14/2018 vein Family History Medical History Relation Name Comments Hypertension Father Cancer Maternal Grandfather throat Cancer Maternal Grandmother breast Relation Name Status Comments Father Maternal Grandfather Maternal Grandmother Social History Tobacco Use Types Packs/Day Years Used Date Never Smoker Smokeless Tobacco: Never Used Alcohol Use Drinks/Week oz/Week Comments Yes once every few m [facility] Sex Assigned at Date Recorded Not on file Job Start Date Occupation Industry Not on file Not on file Not on file Travel History Travel Start Travel End No recent travel history available. Last Filed Vital Signs Not on file Plan of Treatment Not on file Results Not on fileafter 08/28/2019 Insurance Payer Benefit Plan / Group Subscriber ID Type Phone A ddress [employer] - [employer] CARE [employer] HMO POS QPOS xxxxxxxxx HMO/POS Advance Directives For more information, please contact:[place] [address] [place], [place] [phone] Code Status Date Activated Date Inactivated Comments Full Code 08/14/2018 12:36 PM 08/18/2018 7:54 PM This code status was determined by: Patient
--- OUTSIDE RECORDS SUMMARY | 2020-08-28 20:48 | XMS REPORT | Continuity of Care Document ---
:1995 Author Organization [facility] t Address [address] [place] [address] Care Team Providers Name Role Phone Silvino Hawkins MD Attending Clinician RAUL ALICIA Attending Clinician Unavailable RAUL ALICIA Admitting Clinician Unavailable Problems Condition Condition Condition Status Onset Resolution Last Treating Co mments Source Name Details Category Date Date Treatment Clinician Date DVT (deep DVT (deep Disease Active [facility] venous venous 08[facility]14 [facility] thrombosis 00:00: Me dical ) ) 00 [facility] Acute deep Acute deep Disease Active [facility] vein 08-14 [facility] thrombosis 00:00: Me dical (DVT) of (DVT) of 00 Center right right lower lower extremity, extremity, unspecifie unspecifie d vein d vein Allergies, Adverse Reactions, Alerts This patient has no known allergies or adverse reactions. Family History Family Member Diagnosis Comments Start Date Stop Date Source Natural father Hypertension [facility] Maternal grandfather Cancer [facility] Maternal grandmother Cancer [facility] Social History Social Habit Start Date Stop Date Quantity Comments Source Sex Assigned At [facility] Alcohol Comment 2018-08-14 2018-08-14 once every few [facility] - 00:00:00 00:00:00 [facility] Smoking Status Start Date Stop Date Source Never smoker [facility] Medications Ordered Filled Start Stop Current Ordering Indication Dosage Frequency Signature Comments Components Source Medication Medication Date Date Medication? Clinician (SIG) Name Name pantoprazol Yes 40mg QD Take [address] [facility] 9-27 tablet (40 [facility] - (PROTONIX) 00:00: mg total) Me dical 40 MG 00 by mouth Center tablet daily. Yes 1{tbl} QD Take [facility] by [facility] - w/calcium-i 09:47: mouth Medic al jann-folate 48 daily. Center ( PLUS) 27 mg iron- 1 mg Tab ferrous Yes 325mg Take 325 [facility] sulfate 325 9-23 mg by [facility] - (65 FE) MG 09:47: mouth Medica l tablet 48 daily with Center breakfast. acetaminoph Yes 1000mg Take 1,[address] [facility] [address] en 9-23 mg by [facility] - (TYLENOL) 09:47: mouth Medical 500 MG 48 every 6 Center tablet (six) hours as needed for Pain. Procedures This patient has no known procedures. Encounters Start End Encounter Admission Attending Care Care Encounter Source Date/Time Date/Time Type Type Clinicians Facility Department ID 2019-06-21 2019-06-[address] [facility] [id number] 14:17:54 15:28:34 Visit uTricia AMBULATOR [id number] [place] [id number] Results Test Description Test Time Test Comments Results Result Comments Source BASIC METABOLIC PANEL 2018-08-18 14:57:00 Test Item Value Reference Range Interpretation Comme nts SODIUM (BEAKER) (test code 139 meq/L 136-145 = 381) POTASSIUM (BEAKER) (test 3.3 meq/L 3.5-5.1 L code = 379) CHLORIDE (BEAKER) (test 107 meq/L 98-107 code = 382) CO2 (BEAKER) (test code = 26 meq/L 22-29 355) BLOOD UREA NITROGEN 9 mg/dL 7-21 (BEAKER) (test code = 354) CREATININE (BEAKER) (test 0.80 mg/dL 0.57-1.25 code = 358) GLUCOSE RANDOM (BEAKER) 94 mg/dL 70-105 (test code = 652) CALCIUM (BEAKER) (test code 8.8 mg/dL 8.4-10.2 = 697) EGFR (BEAKER) (test code = 89 mL/min/1.73 sq m ESTIMATED GFR IS NOT 1092) ACCURATE CRE ATININE CLEARANCE IN MA EDICTING GLOMERULAR FILT RATION RATE. ESTIMATED GFR IS NOT APPLICABLE FOR DIALYSIS PATIENTS. [id number] 14:51:00 Test Item Value Reference Range Interpretation Comments PARTIAL THROMBOPLASTIN TIME 28.1 seconds 22.5-36.0 (BEAKER) (test code = 760) LUPUS ANTICOAGULANT SCREEN WITH REFLEX TO [id number] 13:07:00 Test Item Value Reference Range Interpretation Comments DRVV SCREEN RATIO 0.97 <1.20 (BEAKER) (test code = 2707) DRVV INTERPRETATION 1:1 mix resulted in (BEAKER) (test code = correction into 2406) normal range and lupus screening tests negative, suggestive of factor deficiency. PROTIME (BEAKER) (test 13.3 seconds 11.7-14.7 code = 759) INR (BEAKER) (test code = 1.2 <=5.9 370) PARTIAL THROMBOPLASTIN 36.9 seconds 22.5-36.0 H TIME (BEAKER) (test code = 760) PTT-LA (BEAKER) (test 46.9 32.0-41.8 H code = [id number]) [id number] Trudi Osman ([facility]) (test code = (electronic 8212) signature) FACTOR 5 LEIDEN PCR (THROMBOTIC RISK)2018-08-18 12:58:00 Test Item Value Reference Range Interpretation Comments FACTOR V LEIDEN Negative for the R506Q (BEAKER) (test code = (Factor V Leiden) 718) mutation [id number] Trudi Osman MD ([facility]) (test code = (electronic signature) 5617) This test is a genotyping assay which [...] was developed and its performance characteristics determined bythe [facility], Section of Molecular Pathology. It has not been cleared or approved by the U.S. Food and Drug Administration (FDA), since FDA approval is not requ ired for clinical use of the test. Validation was done as required by the Clinical Laboratory Improvement Amendments of 1988.[id number] 12:54:00 Test Item Value Reference Range Interpretation Comments PARTIAL THROMBOPLASTIN TIME 56.1 seconds 22.5-36.0 H (BEAKER) (test code = 760) BASIC METABOLIC [id number] 12:51:00 Test Item Value Reference Range Interpretation Comments SODIUM (BEAKER) 141 meq/L 136-145 (test code = 381) POTASSIUM (BEAKER) 2.9 meq/L 3.5-5.1 L (test code = 379) CHLORIDE (BEAKER) 107 meq/L 98-107 (test code = 382) CO2 (BEAKER) (test 28 meq/L 22-29 code = 355) BLOOD UREA NITROGEN 9 mg/dL 7-21 (BEAKER) (test code = 354) CREATININE (BEAKER) 0.85 mg/dL 0.57-1.25 (test code = 358) GLUCOSE RANDOM 106 mg/dL 70-105 H (BEAKER) (test code = 652) CALCIUM (BEAKER) 8.9 mg/dL 8.4-10.2 (test code = 697) EGFR (BEAKER) (test 83 mL/min/1.73 ESTIMA SYEDA GFR IS code = 1092) sq m NOT ACCURATE CREATININE CLEARANCE IN PREDICTING GLOMERULAR FILTRATION RATE . ESTIMATED GFR I S NOT APPLICABLE FOR DIALYSIS PATIEN TS. BETA-2 GLYCOPROTEIN [id number] 10:10:00 Test Item Value Reference Range Interpretation Comments B2 GLYCOPROTEIN Refer to individual AUTOVERIFICATION COMPONENT B2-Glycoprotein (test code = 2557) IgG, IgM and IgA results. [id number] 02:03:00 Test Item Value Reference Range Interpretation Comments PARTIAL THROMBOPLASTIN TIME 65.2 seconds 22.5-36.0 H (BEAKER) (test code = 760) CBC (HEMOGRAM ONLY)2018-08-18 00:40:00 Test Item Value Reference Range Interpretation Comments WHITE BLOOD CELL COUNT (BEAKER) 8.2 K/ L 3.5-10.5 (test code = 775) RED BLOOD CELL COUNT (BEAKER) 3.12 M/ L 3.93-5.22 L (test code = 761) HEMOGLOBIN (BEAKER) (test code = 9.5 GM/DL 11.2-15.7 L 410) HEMATOCRIT (BEAKER) (test code = 27.8 % 34.1-44.9 L 411) MEAN CORPUSCULAR VOLUME (BEAKER) 89.1 fL 79.4-94.8 (test code = 753) MEAN CORPUSCULAR HEMOGLOBIN 30.4 pg 25.6-32.2 (BEAKER) (test code = 751) MEAN CORPUSCULAR HEMOGLOBIN CONC 34.2 GM/DL 32.2-35.5 (BEAKER) (test code = 752) RED CELL DISTRIBUTION WIDTH 13.5 % 11.7-14.4 (BEAKER) (test code = 412) PLATELET COUNT (BEAKER) (test 109 K/CU MM 150-450 L code = 756) MEAN PLATELET VOLUME (BEAKER) 10.5 fL 9.4-12.3 (test code = 754) NUCLEATED RED BLOOD CELLS 0 /100 WBC 0-0 (BEAKER) (test code = 413) SCREEN, [id number] 16:01:00 Test Item Value Reference Range Interpretation Comments TEST URINE (BEAKER) (test Negative code = 583) HEXAGONAL [id number] 13:46:00 Test Item Value Reference Range Interpretation Comments HEXAGONAL PHOSPHOLIPID (BEAKER) Negative (test code = 1790) BASIC METABOLIC [id number] 09:36:00 Test Item Value Reference Range Interpretation Comments SODIUM (BEAKER) 142 meq/L 136-145 (test code = 381) POTASSIUM (BEAKER) 3.3 meq/L 3.5-5.1 L (test code = 379) CHLORIDE (BEAKER) 112 meq/L 98-107 H (test code = 382) CO2 (BEAKER) (test 23 meq/L 22-29 code = 355) BLOOD UREA NITROGEN 5 mg/dL 7-21 L (BEAKER) (test code = 354) CREATININE (BEAKER) 0.68 mg/dL 0.57-1.25 (test code = 358) GLUCOSE RANDOM 86 mg/dL 70-105 (BEAKER) (test code = 652) CALCIUM (BEAKER) 8.8 mg/dL 8.4-10.2 (test code = 697) EGFR (BEAKER) (test 107 mL/min/1.73 ESTIM ATED GFR IS code = 1092) sq m NOT ACCURATE CREATININE CLEARANCE IN PREDICTING GLOMERULAR FILTRATION RATE . ESTIMATED GFR I S NOT APPLICABLE FOR DIALYSIS PATIEN [id number] 09:07:00 Test Item Value Reference Range Interpretation Comments PARTIAL THROMBOPLASTIN TIME 64.2 seconds 22.5-36.0 H (BEAKER) (test code = 760) CBC W/PLT COUNT & AUTO [id number] 08:54:00 Test Item Value Reference Range Interpretation Comments WHITE BLOOD CELL COUNT (BEAKER) 5.7 K/ L 3.5-10.5 (test code = 775) RED BLOOD CELL COUNT (BEAKER) 3.00 M/ L 3.93-5.22 L (test code = 761) HEMOGLOBIN (BEAKER) (test code = 8.9 GM/DL 11.2-15.7 L 410) HEMATOCRIT (BEAKER) (test code = 27.6 % 34.1-44.9 L 411) MEAN CORPUSCULAR VOLUME (BEAKER) 92.0 fL 79.4-94.8 (test code = 753) MEAN CORPUSCULAR HEMOGLOBIN 29.7 pg 25.6-32.2 (BEAKER) (test code = 751) MEAN CORPUSCULAR HEMOGLOBIN CONC 32.2 GM/DL 32.2-35.5 (BEAKER) (test code = 752) RED CELL DISTRIBUTION WIDTH 13.6 % 11.7-14.4 (BEAKER) (test code = 412) PLATELET COUNT (BEAKER) (test code 82 K/CU MM 150-450 L = 756) MEAN PLATELET VOLUME (BEAKER) 10.9 fL 9.4-12.3 (test code = 754) NUCLEATED RED BLOOD CELLS (BEAKER) 0 /100 WBC 0-0 (test code = 413) NEUTROPHILS RELATIVE PERCENT 57 % (BEAKER) (test code = 429) LYMPHOCYTES RELATIVE PERCENT 34 % (BEAKER) (test code = 430) MONOCYTES RELATIVE PERCENT 8 % (BEAKER) (test code = 431) EOSINOPHILS RELATIVE PERCENT 0 % (BEAKER) (test code = 432) BASOPHILS RELATIVE PERCENT 0 % (BEAKER) (test code = 437) NEUTROPHILS ABSOLUTE COUNT 3.29 K/ L 1.56-6.13 (BEAKER) (test code = 670) LYMPHOCYTES ABSOLUTE COUNT 1.93 K/ L 1.18-3.74 (BEAKER) (test code = 414) MONOCYTES ABSOLUTE COUNT (BEAKER) 0.45 K/ L 0.24-0.36 H (test code = 415) EOSINOPHILS ABSOLUTE COUNT 0.02 K/ L 0.04-0.36 L (BEAKER) (test code = 416) BASOPHILS ABSOLUTE COUNT (BEAKER) 0.01 K/ L 0.01-0.08 (test code = 417) IMMATURE GRANULOCYTES-RELATIVE 1 % 0-1 PERCENT (BEAKER) (test code = 2801) VITAMIN B12 AND [id number] 06:57:00 Test Item Value Reference Range Interpretation Comments VITAMIN B12 (BEAKER) (test code = 188 pg/mL 213-816 L 774) FOLATE (BEAKER) (test code = 362) 9.0 ng/mL >=7.0 PERIPHERAL BLOOD SMEAR - HOLD [id number] 06:09:00 Test Item Value Reference Range Interpretation Comments PERIPHERAL SMEAR SAVE (BEAKER) (test Yes code = 1815) BASIC METABOLIC [id number] 05:28:00 Test Item Value Reference Range Interpretation Comments SODIUM (BEAKER) 139 meq/L 136-145 (test code = 381) POTASSIUM (BEAKER) 3.5 meq/L 3.5-5.1 (test code = 379) CHLORIDE (BEAKER) 110 meq/L 98-107 H (test code = 382) CO2 (BEAKER) (test 21 meq/L 22-29 L code = 355) BLOOD UREA NITROGEN 8 mg/dL 7-21 (BEAKER) (test code = 354) CREATININE (BEAKER) 0.68 mg/dL 0.57-1.25 (test code = 358) GLUCOSE RANDOM 98 mg/dL 70-105 (BEAKER) (test code = 652) CALCIUM (BEAKER) 9.0 mg/dL 8.4-10.2 (test code = 697) EGFR (BEAKER) (test 107 mL/min/1.73 ESTIM ATED GFR IS code = 1092) sq m NOT ACCURATE CREATININE CLEARANCE IN PREDICTING GLOMERULAR FILTRATION RATE . ESTIMATED GFR I S NOT APPLICABLE FOR DIALYSIS PATIELLYN TANG. [id number] 05:13:00 Test Item Value Reference Range Interpretation Comments PARTIAL THROMBOPLASTIN TIME 100.4 seconds 22.5-36.0 H (BEAKER) (test code = 760) CBC W/PLT COUNT & AUTO [id number] 05:10:00 Test Item Value Reference Range Interpretation Comments WHITE BLOOD CELL COUNT (BEAKER) 5.0 K/ L 3.5-10.5 (test code = 775) RED BLOOD CELL COUNT (BEAKER) 3.17 M/ L 3.93-5.22 L (test code = 761) HEMOGLOBIN (BEAKER) (test code = 9.3 GM/DL 11.2-15.7 L 410) HEMATOCRIT (BEAKER) (test code = 29.1 % 34.1-44.9 L 411) MEAN CORPUSCULAR VOLUME (BEAKER) 91.8 fL 79.4-94.8 (test code = 753) MEAN CORPUSCULAR HEMOGLOBIN 29.3 pg 25.6-32.2 (BEAKER) (test code = 751) MEAN CORPUSCULAR HEMOGLOBIN CONC 32.0 GM/DL 32.2-35.5 L (BEAKER) (test code = 752) RED CELL DISTRIBUTION WIDTH 13.5 % 11.7-14.4 (BEAKER) (test code = 412) PLATELET COUNT (BEAKER) (test code 77 K/CU MM 150-450 L = 756) MEAN PLATELET VOLUME (BEAKER) 11.2 fL 9.4-12.3 (test code = 754) NUCLEATED RED BLOOD CELLS (BEAKER) 0 /100 WBC 0-0 (test code = 413) NEUTROPHILS RELATIVE PERCENT 66 % (BEAKER) (test code = 429) LYMPHOCYTES RELATIVE PERCENT 24 % (BEAKER) (test code = 430) MONOCYTES RELATIVE PERCENT 9 % (BEAKER) (test code = 431) EOSINOPHILS RELATIVE PERCENT 0 % (BEAKER) (test code = 432) BASOPHILS RELATIVE PERCENT 0 % (BEAKER) (test code = 437) NEUTROPHILS ABSOLUTE COUNT 3.29 K/ L 1.56-6.13 (BEAKER) (test code = 670) LYMPHOCYTES ABSOLUTE COUNT 1.21 K/ L 1.18-3.74 (BEAKER) (test code = 414) MONOCYTES ABSOLUTE COUNT (BEAKER) 0.45 K/ L 0.24-0.36 H (test code = 415) EOSINOPHILS ABSOLUTE COUNT 0.01 K/ L 0.04-0.36 L (BEAKER) (test code = 416) BASOPHILS ABSOLUTE COUNT (BEAKER) 0.01 K/ L 0.01-0.08 (test code = 417) IMMATURE GRANULOCYTES-RELATIVE 0 % 0-1 PERCENT (BEAKER) (test code = 2801) CT, CTA [id number] 17:40:00(delayed CTA for venous phase imagingAddendum BeginsREPORT STATUS:A Addendum: August 15, 2018 at 1745 hours I have reviewed the CT images for this study and I concur with the nonvascular imaging findings as dictated. Signed: [place] MDReport Verified Date/Time: 08/15/2018 17:40:51 Reading Location: [place] [address] Angio Body Reading RoomAddendum EndsFINAL REPORT CT venography of the abdomen and pelvis, 15 August 2018 INDICATION: This is a 22 year old female, per [facility], has known DVT, presents for assessment. This [...] dissection, intramural hematoma, or contained rupture. Quantitative dimensions of the [...] are unremarkable with no venous thrombosis identified. NON- VASCULAR: LUNG BASES: See chest CT result. The visualised liver and spleen appears unremarkable. The liver edge is smooth. No abnormal enhancing structure is identified. No acute renal pathology is seen and no hydronephrosis or pe rirenal fluid collections identified. The adrenal glands are [...] dictated regarding the non-vascular findings by the Shoe Stitcher Radiologist. Signed: Pérez Meyers MDReport Verified Date/Time: 08/15/2018 12:35:56 Reading Location: [place] [address] Cardiology MRI PROTEIN C [id number] 15:09:00 Test Item Value Reference Range Interpretation Comments PROTEIN C ACTIVITY (BEAKER) (test 108.0 % 70.0-130.0 code = 582) [id number] 15:02:00 Test Item Value Reference Range Interpretation Comments HOMOCYSTEINE (BEAKER) (test code = 4.4 umol/L 5.1-15.4 L 642) CT, CHEST WITH IV CONTRAST- PE TEST [id number] 15:01:00FINAL REPORT TECHNIQUE: CT scan of the [...] MDReport Verified Date/Time: 08/15/2018 15:01:15 Reading Location: [facility] B1 C013Y CT Body Reading Room LACTATE DEHYDROGENASE (LDH)2018-08-15 14:50:00 Test Item Value Reference Range Interpretation Comments LACTATE DEHYDROGENASE 217 U/L 125-220 Specim en slightly (BEAKER) (test code = hemoly zed 635) HEPATIC FUNCTION [id number] 14:46:00 Test Item Value Reference Range Interpretation Comments TOTAL PROTEIN (BEAKER) 7.1 gm/dL 6.0-8.3 Speci men slightly (test code = 770) hemolyzed ALBUMIN (BEAKER) (test 3.6 g/dL 3.5-5.0 Speci men slightly code = 1145) hemolyzed BILIRUBIN TOTAL 0.4 mg/dL 0.2-1.2 Specimen sli ghtly (BEAKER) (test code = hemoly zed 377) BILIRUBIN DIRECT 0.2 mg/dL 0.1-0.5 Specimen sl ightly (BEAKER) (test code = hemoly zed 706) ALKALINE PHOSPHATASE 90 U/L 40-150 (BEAKER) (test code = 346) AST (SGOT) (BEAKER) 22 U/L 5-34 Specimen slightly (test code = 353) hemolyzed ALT (SGPT) (BEAKER) 18 U/L 6-55 Specimen slightly (test code = 347) hemolyzed [id number] 14:42:00 Test Item Value Reference Range Interpretation Comments HAPTOGLOBIN (BEAKER) (test code = 194 mg/dL 14-258 366) [id number] 14:42:00 Test Item Value Reference Range Interpretation Comments PARTIAL THROMBOPLASTIN TIME 76.2 seconds 22.5-36.0 H (BEAKER) (test code = 760) RETICULOCYTE [id number] 14:25:00 Test Item Value Reference Range Interpretation Comments RETICULOCYTE COUNT PCT (BEAKER) (test 1.1 % 0.5-1.7 code = 575) 1:1 MIXING STUDY, [id number] 14:20:00 Test Item Value Reference Range Interpretation Comments PROTIME (BEAKER) (test code = 13.3 seconds 11.7-14.7 759) PARTIAL THROMBOPLASTIN TIME 36.9 seconds 22.5-36.0 H (BEAKER) (test code = 760) PT 1/1 MIX (BEAKER) (test code = 13.3 SECS 11.7-14.7 1595) PTT 1/1 MIX (BEAKER) (test code 32.7 SECS 22.5-36.0 = 1596) HEPARIN [id number] 14:10:00 Test Item Value Reference Range Interpretation Comments HEPARIN ANTIBODY (BEAKER) (test code Negative Negative = 646) HEPARIN ANTIBODY OD (BEAKER) (test 0.132 <0.400 code = 2659) 4T TOTAL SCORE (BEAKER) (test code = 6 6003) Probability of HIT based on scoring system: 6-8 = High probability; 4-5 = intermediate probability;0-3 = low probabilityPERIPHERAL BLOOD SMEAR - PATHOLOGIST [id number] 13:56:00 Test Item Value Reference Range Interpretation Comments PERIPHERAL SMR REVIEW Cell counts confirmed. (BEAKER) (test code = 2640) [id number] Carolynn Lester M.D. (BEAKER) (test code = (electronic signature) 2865) CARDIOLIPIN ANTIBODIES, IGG AND [id number] 11:46:00 Test Item Value Reference Range Interpretation Comments ANTICARDIOLIPIN IGG ANTIBODY (BEAKER) < GPL <20.0 (test code = 712) ANTICARDIOLIPIN IGM ANTIBODY (BEAKER) 3.8 MPL <20.0 (test code = 713) Anticardiolipin IgG Result Interpretation: <20.0 GPL Normal>/= 20.0 GPL PositiveAnticardiolipin IgM Result Interpretation: <20.0 MPL Normal>/= 20.0 MPL PositiveCBC W/PLT COUNT & AUTO [id number] 07:48:00 Test Item Value Reference Range Interpretation Comments WHITE BLOOD CELL COUNT (BEAKER) 2.8 K/ L 3.5-10.5 L (test code = 775) RED BLOOD CELL COUNT (BEAKER) 3.38 M/ L 3.93-5.22 L (test code = 761) HEMOGLOBIN (BEAKER) (test code = 10.0 GM/DL 11.2-15.7 L 410) HEMATOCRIT (BEAKER) (test code = 30.9 % 34.1-44.9 L 411) MEAN CORPUSCULAR VOLUME (BEAKER) 91.4 fL 79.4-94.8 (test code = 753) MEAN CORPUSCULAR HEMOGLOBIN 29.6 pg 25.6-32.2 (BEAKER) (test code = 751) MEAN CORPUSCULAR HEMOGLOBIN CONC 32.4 GM/DL 32.2-35.5 (BEAKER) (test code = 752) RED CELL DISTRIBUTION WIDTH 13.8 % 11.7-14.4 (BEAKER) (test code = 412) PLATELET COUNT (BEAKER) (test code 48 K/CU MM 150-450 L = 756) MEAN PLATELET VOLUME (BEAKER) 12.0 fL 9.4-12.3 (test code = 754) NUCLEATED RED BLOOD CELLS (BEAKER) 0 /100 WBC 0-0 (test code = 413) (CELLAVISION MANUAL DIFF)2018-08-15 07:48:00 Test Item Value Reference Range Interpretation Comments NEUTROPHILS - REL 44 % (CELLAVISION)(BEAKER) (test code = 2816) LYMPHOCYTES - REL 46 % (CELLAVISION)(BEAKER) (test code = 2817) MONOCYTES - REL 1 % (CELLAVISION)(BEAKER) (test code = 2818) EOSINOPHILS - REL 7 % (CELLAVISION)(BEAKER) (test code = 2819) BASOPHILS - REL 1 % (CELLAVISION)(BEAKER) (test code = 2820) ATYPICAL LYMPHOCYTES - REL 1 % 0-0 H (CELLAVISION)(BEAKER) (test code = 2829) NEUTROPHILS - ABS 1.23 K/ul 1.56-6.13 L (CELLAVISION)(BEAKER) (test code = 2830) LYMPHOCYTES - ABS 1.29 K/ul 1.18-3.74 (CELLAVISION)(BEAKER) (test code = 2831) MONOCYTES - ABS 0.03 K/uL 0.24-0.36 L (CELLAVISION)(BEAKER) (test code = 2832) EOSINOPHILS - ABS 0.20 K/uL 0.04-0.36 (CELLAVISION)(BEAKER) (test code = 2834) BASOPHILS - ABS 0.03 K/uL 0.01-0.08 (CELLAVISION)(BEAKER) (test code = 2835) ATYPICAL LYMPHOCYTES - ABS 0.03 K/uL 0.00-0.00 H (CELLAVISION)(BEAKER) (test code = 2858) TOTAL COUNTED (BEAKER) (test code 100 = 1351) MANUAL NRBC PER 100 CELLS (BEAKER) 1 /100 WBC 0-0 H (test code = 1353) RBC MORPHOLOGY (BEAKER) (test code Normal = 762) SMUDGE CELLS (BEAKER) (test code = Present 1371) GIANT PLATELETS (BEAKER) (test Present code = 313) ARTIFACT (CELLAVISION)(BEAKER) Present (test code = 3432) PLATELET CONCENTRATION Decreased (CELLAVISION)(BEAKER) (test code = 3438) Received comment: User comments: Slide comments:BASIC METABOLIC [id number] 04:46:00 Test Item Value Reference Range Interpretation Comments SODIUM (BEAKER) 140 meq/L 136-145 (test code = 381) POTASSIUM (BEAKER) 3.7 meq/L 3.5-5.1 (test code = 379) CHLORIDE (BEAKER) 110 meq/L 98-107 H (test code = 382) CO2 (BEAKER) (test 23 meq/L 22-29 code = 355) BLOOD UREA NITROGEN 8 mg/dL 7-21 (BEAKER) (test code = 354) CREATININE (BEAKER) 0.70 mg/dL 0.57-1.25 (test code = 358) GLUCOSE RANDOM 88 mg/dL 70-105 (BEAKER) (test code = 652) CALCIUM (BEAKER) 8.8 mg/dL 8.4-10.2 (test code = 697) EGFR (BEAKER) (test 104 mL/min/1.73 ESTIM ATED GFR IS code = 1092) sq m NOT ACCURATE CREATININE CLEARANCE IN PREDICTING GLOMERULAR FILTRATION RATE . ESTIMATED GFR I S NOT APPLICABLE FOR DIALYSIS PATIEN CLYDE. [id number] 04:45:00 Test Item Value Reference Range Interpretation Comments PARTIAL THROMBOPLASTIN TIME 86.9 seconds 22.5-36.0 H (BEAKER) (test code = 760) [id number] 21:11:00 Test Item Value Reference Range Interpretation Comments PARTIAL THROMBOPLASTIN TIME 103.9 seconds 22.5-36.0 H (BEAKER) (test code = 760) VITAMIN B12 AND [id number] 15:11:00 Test Item Value Reference Range Interpretation Comments VITAMIN B12 (BEAKER) (test code = 232 pg/mL 213-816 774) FOLATE (BEAKER) (test code = 362) 11.8 ng/mL >=7.0 [id number] 14:17:00 Test Item Value Reference Range Interpretation Comments FERRITIN (BEAKER) (test code = 361) 18 ng/mL 5-275 [id number] 14:02:00 Test Item Value Reference Range Interpretation Comments PARTIAL THROMBOPLASTIN TIME 38.9 seconds 22.5-36.0 H (BEAKER) (test code = 760) THROMBIN [id number] 13:59:00 Test Item Value Reference Range Interpretation Comments THROMBIN TIME (BEAKER) (test code = 20.2 secs 13.8-20.0 H 550) IRON, TIBC, % SAT. (WITHOUT FERRITIN)2018-08-14 13:56:00 Test Item Value Reference Range Interpretation Comments IRON (BEAKER) (test code = 547) 29 ug/dL 40-160 L TOTAL IRON BINDING CAPACITY 386 ug/dL 250-450 (BEAKER) (test code = 769) IRON % SATURATION (2) (BEAKER) 8 % 20-55 L (test code = 2590) CBC W/PLT COUNT & AUTO [id number] 13:45:00 Test Item Value Reference Range Interpretation Comments WHITE BLOOD CELL COUNT (BEAKER) 3.3 K/ L 3.5-10.5 L (test code = 775) RED BLOOD CELL COUNT (BEAKER) 3.47 M/ L 3.93-5.22 L (test code = 761) HEMOGLOBIN (BEAKER) (test code = 10.3 GM/DL 11.2-15.7 L 410) HEMATOCRIT (BEAKER) (test code = 31.6 % 34.1-44.9 L 411) MEAN CORPUSCULAR VOLUME (BEAKER) 91.1 fL 79.4-94.8 (test code = 753) MEAN CORPUSCULAR HEMOGLOBIN 29.7 pg 25.6-32.2 (BEAKER) (test code = 751) MEAN CORPUSCULAR HEMOGLOBIN CONC 32.6 GM/DL 32.2-35.5 (BEAKER) (test code = 752) RED CELL DISTRIBUTION WIDTH 13.9 % 11.7-14.4 (BEAKER) (test code = 412) PLATELET COUNT (BEAKER) (test code 52 K/CU MM 150-450 L = 756) MEAN PLATELET VOLUME (BEAKER) 11.7 fL 9.4-12.3 (test code = 754) NUCLEATED RED BLOOD CELLS (BEAKER) 0 /100 WBC 0-0 (test code = 413) NEUTROPHILS RELATIVE PERCENT 48 % (BEAKER) (test code = 429) LYMPHOCYTES RELATIVE PERCENT 39 % (BEAKER) (test code = 430) MONOCYTES RELATIVE PERCENT 9 % (BEAKER) (test code = 431) EOSINOPHILS RELATIVE PERCENT 4 % (BEAKER) (test code = 432) BASOPHILS RELATIVE PERCENT 0 % (BEAKER) (test code = 437) NEUTROPHILS ABSOLUTE COUNT 1.55 K/ L 1.56-6.13 L (BEAKER) (test code = 670) LYMPHOCYTES ABSOLUTE COUNT 1.26 K/ L 1.18-3.74 (BEAKER) (test code = 414) MONOCYTES ABSOLUTE COUNT (BEAKER) 0.29 K/ L 0.24-0.36 (test code = 415) EOSINOPHILS ABSOLUTE COUNT 0.13 K/ L 0.04-0.36 (BEAKER) (test code = 416) BASOPHILS ABSOLUTE COUNT (BEAKER) 0.01 K/ L 0.01-0.08 (test code = 417) IMMATURE GRANULOCYTES-RELATIVE 0 % 0-1 PERCENT (BEAKER) (test code = 2801) [id number] 11:58:00 Test Item Value Reference Range Interpretation Comments PHOSPHORUS (BEAKER) (test code = 4.1 mg/dL 2.3-4.7 604) [id number] 11:58:00 Test Item Value Reference Range Interpretation Comments MAGNESIUM (BEAKER) (test code = 1.8 mg/dL 1.6-2.6 627) COMPREHENSIVE METABOLIC [id number] 11:58:00 Test Item Value Reference Range Interpretation Comments TOTAL PROTEIN 6.8 gm/dL 6.0-8.3 (BEAKER) (test code = 770) ALBUMIN (BEAKER) 3.6 g/dL 3.5-5.0 (test code = 1145) ALKALINE PHOSPHATASE 82 U/L 40-150 (BEAKER) (test code = 346) BILIRUBIN TOTAL 0.4 mg/dL 0.2-1.2 (BEAKER) (test code = 377) SODIUM (BEAKER) (test 139 meq/L 136-145 code = 381) POTASSIUM (BEAKER) 3.6 meq/L 3.5-5.1 (test code = 379) CHLORIDE (BEAKER) 108 meq/L 98-107 H (test code = 382) CO2 (BEAKER) (test 24 meq/L 22-29 code = 355) BLOOD UREA NITROGEN 8 mg/dL 7-21 (BEAKER) (test code = 354) CREATININE (BEAKER) 0.69 mg/dL 0.57-1.25 (test code = 358) GLUCOSE RANDOM 87 mg/dL 70-105 (BEAKER) (test code = 652) CALCIUM (BEAKER) 9.1 mg/dL 8.4-10.2 (test code = 697) AST (SGOT) (BEAKER) 14 U/L 5-34 (test code = 353) ALT (SGPT) (BEAKER) 12 U/L 6-55 (test code = 347) EGFR (BEAKER) (test 105 ESTIMATE D GFR IS code = 1092) mL/min/1.73 sq NOT ACCURA TE m CREATININE CLEARANCE IN PREDICTING GLOMERULAR FILTRATION RATE . ESTIMATED GFR I S NOT APPLICABLE FOR DIALYSIS PATIEN TS. [id number] 11:56:00 Test Item Value Reference Range Interpretation Comments PARTIAL THROMBOPLASTIN TIME 138.3 seconds 22.5-36.0 H (BEAKER) (test code = 760) 6 hours after starting heparin infusion and as indicated per sliding scale PROTHROMBIN [id number] 11:53:00 Test Item Value Reference Range Interpretation Comments PROTIME (BEAKER) (test code = 15.3 seconds 11.7-14.7 H 759) INR (BEAKER) (test code = 370) 1.2 <=5.9 RECOMMENDED COUMADIN/WARFARIN INR THERAPY RANGESSTANDARD DOSE: 2.0 - 3.0 Includes: PROPHYLAXIS forvenous thrombosis, systemic embolization; TREATMENT for venous thrombosis and/or pulmonary embolus.HIGH RISK: Target INR is 2.5-3.5 for patients with mechanical heart valves.6 hours after starting heparin infusion and as indicated per sliding scaleCBC W/PLT COUNT & AUTO DIFFERENTIAL 2018-08-14 11:25:00 Test Item Value Reference Range Interpretation Comments WHITE BLOOD CELL COUNT (BEAKER) 3.4 K/ L 3.5-10.5 L (test code = 775) RED BLOOD CELL COUNT (BEAKER) 3.66 M/ L 3.93-5.22 L (test code = 761) HEMOGLOBIN (BEAKER) (test code = 10.6 GM/DL 11.2-15.7 L 410) HEMATOCRIT (BEAKER) (test code = 33.3 % 34.1-44.9 L 411) MEAN CORPUSCULAR VOLUME (BEAKER) 91.0 fL 79.4-94.8 (test code = 753) MEAN CORPUSCULAR HEMOGLOBIN 29.0 pg 25.6-32.2 (BEAKER) (test code = 751) MEAN CORPUSCULAR HEMOGLOBIN CONC 31.8 GM/DL 32.2-35.5 L (BEAKER) (test code = 752) RED CELL DISTRIBUTION WIDTH 13.9 % 11.7-14.4 (BEAKER) (test code = 412) PLATELET COUNT (BEAKER) (test code 47 K/CU MM 150-450 L = 756) MEAN PLATELET VOLUME (BEAKER) 11.9 fL 9.4-12.3 (test code = 754) NUCLEATED RED BLOOD CELLS (BEAKER) 0 /100 WBC 0-0 (test code = 413) NEUTROPHILS RELATIVE PERCENT 47 % (BEAKER) (test code = 429) LYMPHOCYTES RELATIVE PERCENT 38 % (BEAKER) (test code = 430) MONOCYTES RELATIVE PERCENT 10 % (BEAKER) (test code = 431) EOSINOPHILS RELATIVE PERCENT 4 % (BEAKER) (test code = 432) BASOPHILS RELATIVE PERCENT 0 % (BEAKER) (test code = 437) NEUTROPHILS ABSOLUTE COUNT 1.58 K/ L 1.56-6.13 (BEAKER) (test code = 670) LYMPHOCYTES ABSOLUTE COUNT 1.28 K/ L 1.18-3.74 (BEAKER) (test code = 414) MONOCYTES ABSOLUTE COUNT (BEAKER) 0.33 K/ L 0.24-0.36 (test code = 415) EOSINOPHILS ABSOLUTE COUNT 0.14 K/ L 0.04-0.36 (BEAKER) (test code = 416) BASOPHILS ABSOLUTE COUNT (BEAKER) 0.01 K/ L 0.01-0.08 (test code = 417) IMMATURE GRANULOCYTES-RELATIVE 0 % 0-1 PERCENT (BEAKER) (test code = 2807)
== END 2020-08-23 17:13 | disposition home or self-care (01) ==
LOC: ER 14:06
DX: R07.9 Chest pain, unspecified (principal); Z86.718 Personal history of other venous thrombosis and embolism
CPT/HCPCS: 93005; 85025; 80048; 36415; 85610; 85730; 84484; 83880; 71275; 71045; 99285; Q9967